=== PATIENT | female | born 1990 | race Caucasian/White ===

== ENCOUNTER → 2017-06-15 13:04 | Outpatient (CLI) | payer OTHER, SELFPAY ==
[2017-06-15 18:56] LABS: Chlamydia Trachomatis by PCR Negative (Negative); Neisserai gonorrhoeae by PCR Negative (Negative); Probe Check PASS; Sample Adequacy Control PASS; Specimen Processing Control PASS
[2017-06-18 11:44] LABS: HPV Reflexed? NOT INDICATED
== END ==
PROVIDERS: Visit Provider Obstetrics & Gynecology
DX: Z12.4 Encounter for screening for malignant neoplasm of cervix (principal); Z11.3 Encounter for screening for infections with a predominantly sexual mode of transmission
CPT/HCPCS: 87491; 87591; 88175; G0145

== ENCOUNTER → 2017-07-06 10:35 | Outpatient (CLI) | payer OTHER, SELFPAY ==
[2017-07-06 12:28] LABS: Color, Urine Yellow (Yellow); Glucose, Dipstick Normal (Normal); Ketone-Dipstick Negative (Negative); Leukocyte Esterase-Dipstick 500 /ul (Negative); Nitrite-Dipstick Negative (Negative); Occult Blood-Urine Negative /ul (Negative); Protein-Dipstick Negative (Negative); Urine Bilirubin Dipstick Negative (Negative); Urine Clarity Clear (Clear); Urine Urobilinogen Normal (Normal)
[2017-07-06 12:38] LABS: Absolute Lymphocyte Count 1.25 X10^3/ul (0.83-4.51); Absolute Neutrophil Count 3.9 X10^3/uL (2.0-7.7); Basophil# 0.01 X10^3/uL; Basophil% 0.2 % (0-1); Eosinophil# 0.12 X10^3/uL; Eosinophils% 2.2 % (0-5); Hematocrit 36.4 % (37-47); Hemoglobin 12.1 g/dl (12.0-15.0); Lymphocyte # 1.25 X10^3/ul (4.0); Lymphocyte % 22.4 % (19-41); Mean Corp Hgb Conc 33.2 g/gl (32-36); Mean Corpuscular Hgb 29.5 pg (27.0-32.0); Mean Corpuscular Volume 88.8 fL (81-99); Mean Platelet Vol. 11.1 fl (6.2-12.0); Monocyte# 0.34 X10^3/uL; Monocyte% 6.1 % (0-10); Neutrophil # 3.85 X10^3/uL (2.7-7.7); Neutrophil % 68.9 % (47-70); Platelet Count 184 K/mm3 (150-450); RBC Distribution Width CV 13.9 % (11.6-14.6); RBC Distribution Width SD 45.2 fl (35.1-43.9); White Blood Count 5.6 K/mm3 (4.4-11.0)
[2017-07-06 12:40] LABS: POSITIVE COUNT NO; POSITIVE DIFFERENTIAL NO; POSITIVE MORPHOLOGY NO
[2017-07-06 12:56] LABS: Amphetamine Urine VISTA NEGATIVE (<1000 ng/mL); Barbiturate Urine VISTA NEGATIVE (< 200 ng/mL); Benzodiazepine Urine VISTA NEGATIVE (< 200 ng/mL); Cocaine Urine VISTA NEGATIVE (< 300 ng/mL); Ecstacy Urine VISTA NEGATIVE (< 500 ng/mL); Methadone Urine VISTA NEGATIVE (< 300 ng/mL); PCP Urine VISTA NEGATIVE (< 25 ng/mL); THC Urine VISTA NEGATIVE (< 50 ng/mL); Vista UDS pH Range 7
[2017-07-06 13:00] LABS: Thyroid Stim Hormone (TSH) 1.62 uIU/mL (0.358-3.74)
[2017-07-07 09:35] LABS: HIV - WCH Non-Reactive (Nonreactive); Rubella IgG 108.1 IU/mL
[2017-07-07 11:29] LABS: HEPATITIS B SURFACE AG Negative (Negative); Hep C Antibodies <0.1 s/co ratio (0.0-0.9)
[2017-07-09 01:12] LABS: Prenatal RPR NONREACTIVE (NONREACTIVE)
== END ==
LOC: WOBLAB 10:38
PROVIDERS: Visit Provider Obstetrics & Gynecology
DX: Z34.90 Encounter for supervision of normal pregnancy, unspecified, unspecified trimester (principal)
CPT/HCPCS: 36415; 80307; 81002; 84443; 85025; 86703; 86762; 86803; 87340

== ENCOUNTER → 2017-10-21 10:48 | Outpatient (CLI) | payer OTHER, SELFPAY ==
[2017-10-21 14:02] LABS: Hematocrit 37.8 % (37-47); Hemoglobin 12.4 g/dl (12.0-15.0); Mean Corp Hgb Conc 32.8 g/gl (32-36); Mean Corpuscular Hgb 30.2 pg (27.0-32.0); Mean Platelet Vol. 11.2 fl (6.2-12.0); Platelet Count 176 K/mm3 (150-450); RBC Distribution Width CV 13.3 % (11.6-14.6); RBC Distribution Width SD 43.9 fl (35.1-43.9); Red Blood Count 4.11 M/mm3 (4.2-5.4); White Blood Count 8.8 K/mm3 (4.4-11.0)
[2017-10-21 14:03] LABS: Scan Indicated on CBC? Y/N NO
[2017-10-21 14:08] LABS: Glucose Challenge Gest 1H 50g 101 mg/dL (70-140)
== END ==
PROVIDERS: Visit Provider Obstetrics & Gynecology
DX: Z34.83 Encounter for supervision of other normal pregnancy, third trimester (principal)
CPT/HCPCS: 36415; 82950; 85027

== ENCOUNTER 2017-11-16 21:10 | Outpatient (CLI) | payer OTHER, SELFPAY ==
[2017-11-16 21:48] VITALS: BMI 22.8
[2017-11-16 21:49] LABS: Bacteria 0 SEEN /hpf (None Seen); Mucous, Urine 0 SEEN /hpf (<or=2+); Red Blood Cells-Urine 0 SEEN /hpf (0-5)
[2017-11-16 21:55] LABS: Color, Urine Yellow (Yellow); Glucose, Dipstick Normal (Normal); Ketone-Dipstick Negative (Negative); Leukocyte Esterase-Dipstick 100 /ul (Negative); Nitrite-Dipstick Negative (Negative); Occult Blood-Urine Negative /ul (Negative); Protein-Dipstick Negative (Negative); Urine Bilirubin Dipstick Negative (Negative); Urine Clarity Clear (Clear); Urine Urobilinogen Normal (Normal)
[2017-11-16 22:01] LABS: Squamous Epithelial Cells - UA 0-5 SEEN /hpf (5-10); White Blood Cells 0-5 SEEN /hpf (0-5)
[2017-11-16 22:52] LABS: ROM Internal Control Test YES-OK TO RESULT pt. (Internal QC); ROM Patient Test Negative (Negative)
[2017-11-16 23:45] LABS: Fetal Fibronectin Negative
--- NOTE | 2017-11-17 04:56 | OB.TRI.NOTE ---
History of Present Illness Date of Service: 11/16/17 Reason For Visit: R/O LABOR Date of Service: 11/16/17 Final NOAH: 01/11/18 Gestational age: 32 Weeks and 0 Days History of Present Illness: 27 yo at 32 wk with prior 39 wk delivery Presents with CC of back pain, ? UCs. Pelvic pain. All started at work. Pain was 7/10 ? SROM yesterday. Allergies No Known Allergies Allergy (Verified 11/16/17 21:42) Physical Exam Cervix Dilation (cm): 0 Station: -3 Effacement (%): 0 - ROM NEG. FFN NEG NST - FHR Rate Baby A Baseline: 120s with accels to 150-160 Variability:: Moderate Accelerations:: 15 x 15 Decelerations:: None NST Reactive:: Yes, Appropriate for gestational age FHR Category:: Category I Uterine Activity:: UCs irreg q 6-10 + with irritability noted. Impression/Plan 32 wk. False labor NST reactive Home to rest. No further heavy lifting Ofc appt as scheduled.
== END 2017-11-16 23:55 | disposition home or self-care (01) ==
LOC: WPOUT 21:22 → WP 21:22
PROVIDERS: Visit Provider Obstetrics & Gynecology
DX: O47.03 False labor before 37 completed weeks of gestation, third trimester (principal); Z3A.32 32 weeks gestation of pregnancy
CPT/HCPCS: 59025; 59050; 81001; 82731; 84112; 99218; G0378

== ENCOUNTER → 2017-12-15 11:53 | Outpatient (CLI) | payer OTHER, SELFPAY ==
[2017-12-15 15:15] LABS: Group B Strep DNA By PCR Negative (Negative); Internal Control PASS; Probe Check PASS; Specimen Processing Control PASS
== END ==
LOC: LABSPEC 11:54
PROVIDERS: Visit Provider Obstetrics & Gynecology
DX: Z36.85 Encounter for antenatal screening for Streptococcus B (principal)
CPT/HCPCS: 87081; 87653

== ENCOUNTER 2018-01-07 16:25 | Outpatient (CLI) | payer OTHER, SELFPAY ==
[2018-01-07 16:50] VITALS: BMI 23.7
--- NOTE | 2018-01-10 11:21 | OB.TRI.NOTE ---
History of Present Illness Date of Service: 01/07/18 Was patient seen by the physician?: No Reason For Visit: R/O LABOR Date of Service: 01/07/18 Final NOAH: 01/11/18 Final NOAH Source: US <20 weeks Gestational age: 39 Weeks and 3 Days History of Present Illness: 39+ week intrauterine presents with contractions. care uneventful. Allergies No Known Allergies Allergy (Verified 11/16/17 21:42) NST - FHR Rate Baby A NST Reactive:: Yes FHR Category:: Category I Uterine Activity:: Occasional contraction noted. Impression/Plan 39+ week intrauterine with false labor. Observe first several hours and no change in cervix. Reactive nonstress test. Will release to home and return when contractions are stronger and more frequent.
== END 2018-01-07 18:30 | disposition home or self-care (01) ==
LOC: WPOUT 16:38 → WP 16:38
PROVIDERS: Referring Provider Obstetrics & Gynecology; Visit Provider Obstetrics & Gynecology
DX: O47.1 False labor at or after 37 completed weeks of gestation (principal); Z3A.39 39 weeks gestation of pregnancy
CPT/HCPCS: 59025; 59050; 99218; G0378

== ENCOUNTER 2018-01-10 02:25 | Inpatient (IN) | payer OTHER, SELFPAY ==
[2018-01-10 01:33] VITALS: BMI 23.7
[2018-01-10] MEDS: Lactated Ringers 1,000 ML 50 ML IV ×3 (02:50→06:55)
[2018-01-10 02:55] VITALS: PULSE 64; RESP 18
[2018-01-10] MEDS: Albuterol 2.5 MG/3 ML VIAL.NEB. INHALATION (02:55)
[2018-01-10 02:58] LABS: Hematocrit 38.9 % (37-47); Hemoglobin 13.2 g/dl (12.0-15.0); Mean Corp Hgb Conc 33.9 g/gl (32-36); Mean Corpuscular Hgb 29.6 pg (27.0-32.0); Mean Corpuscular Volume 87.2 fL (81-99); Mean Platelet Vol. 11.8 fl (6.2-12.0); Platelet Count 168 K/mm3 (150-450); RBC Distribution Width CV 13.3 % (11.6-14.6); RBC Distribution Width SD 40.8 fl (35.1-43.9); Red Blood Count 4.46 M/mm3 (4.2-5.4); Scan Indicated on CBC? Y/N NO; White Blood Count 9.9 K/mm3 (4.4-11.0)
[2018-01-10] MEDS: fentaNYL-bupivacaine (epidural) 100 ML BAG EPIDURAL ×2 (04:03→08:15)
[2018-01-10] MEDS: Ondansetron 4 MG/2 ML Vial IV (04:50)
[2018-01-10] MEDS: Oxytocin 30 units/NS 500 ml 30 UNITS/500 ML IV.SOLN IV (09:34)
[2018-01-10] MEDS: Oxytocin 30 units/NS 500 ml 30 UNITS/500 ML IV.SOLN 334 UNITS IV (10:18)
--- NOTE | 2018-01-10 10:21 | PCM.OB.VAG ---
Vaginal Delivery Maternal Presentation: Active Labor Amniotic Membrane Rupture Type: Artificial Amniotic Fluid Description: Clear Final NOAH: 01/12/18 Final NOAH Source: US <20 weeks Gestational age: 39 Weeks and 5 Days Date of Procedure: 01/10/18 Pre-Operative Diagnosis: 39 5/7 wk labor Post-Operative Diagnosis: same Surgery/ Procedure Performed: Spontaneous Vaginal Delivery Type of Anesthesia: Epidural Description of Procedure: of a jimenez viable female over intact perineum. Head delivered SAUMYA. No nuchal cord. Shoulders delivered easily, L hand at chin. Infant to maternal abdomen. Delayed cord clamp then clamped x two and cut. Female Ap 8/9 PP exam. Bilateral anterior labial/periurethral 1st deg laceration noted. hemostatic, no repair Placenta delivered by spont expulsion, expression 3V cord, normal appearing, intact with trailing membranes. EBL 250 cc pt and infant tolerated delivery well. to recovery, stable condition. Ray Rashad counts correct x two. Presentation: Vertex, SAUMYA Placental Delivery Description: Spontaneous, Expressed Placenta Disposition: [facility] Cord Vessel Description: 3 Vessels Cord Entanglement: None Drain: Dubois to straight drain Estimated Blood Loss: 250 A gender: Female (1 minute): 8 (5 minute): 9 Episiotomy Description: None Laceration: Periurethral Extnsion/lac, 1st degree - no repair Medications given after delivery: IV Pitocin Complications: None
--- NOTE | 2018-01-10 10:29 | PCM.DCVAG ---
Discharge Diet: No Restrictions Discharge Activity: May Shower, May Take a Tub Bath Return to work on:: 02/21/18 May resume sexual activity in: 4-6 weeks Additional Activity Instructions:: Nothing in the vagina for 4-6 weeks. You may return to work/school in 6 weeks. Additional Instructions: If you experience any of the following, contact your healthcare provider. Bleeding that soaks a pad every hour for 2 hours Fever 100.4 or higher Unrelieved abdominal pain Problems urinating (including inability to urinate or burning while urinating). Visual changes Severe headache Flu-like symptoms Pain or redness in one of both of your breasts Pain, warmth, tenderness or swelling in your legs, especially the calf area Frequent nausea and vomiting Symptoms of depression or anxiety If you experience any of the following, call 911 or go to the nearest Emergency Room. Chest pain Problems breathing Seizure activity Partial or complete paralysis of a body part, slurred speech, weakness or drooping of the face, or a sudden inability to walk or hold your balance Allergies/Adverse Reactions: Allergies No Known Allergies Allergy (Verified 11/16/17 21:42) Medications to take at Discharge Doxylamine Succinate [Unisom] 25 mg PO QHS PRN PRN 11/16/17 Vits [Prenatabs FA ] 1 tab PO DAILY MDD one 11/16/17 Sertraline HCl [Zoloft] 50 mg PO QHS 11/16/17 Please Follow Up With: Lora Jordan MD - [phone] When: Call to make an appointment with your doctor in 6 weeks. Test Results: Test results from this visit will be discussed in further detail at your follow-up appointment, if applicable. Proposed Discharge Date: 01/12/18
--- NOTE | 2018-01-10 10:30 | DCINST_ITS ---
Discharge Diet: No Restrictions Discharge Activity: May Shower, May Take a Tub Bath Return to work on:: 02/21/18 May resume sexual activity in: 4-6 weeks Additional Activity Instructions:: Nothing in the vagina for 4-6 weeks. You may return to work/school in 6 weeks. Additional Instructions: If you experience any of the following, contact your healthcare provider. * Bleeding that soaks a pad every hour for 2 hours * Fever 100.4 or higher * Unrelieved abdominal pain * Problems urinating (including inability to urinate or burning while urinating). * Visual changes * Severe headache * Flu-like symptoms * Pain or redness in one of both of your breasts * Pain, warmth, tenderness or swelling in your legs, especially the calf area * Frequent nausea and vomiting * Symptoms of depression or anxiety If you experience any of the following, call 911 or go to the nearest Emergency Room. * Chest pain * Problems breathing * Seizure activity * Partial or complete paralysis of a body part, slurred speech, weakness or drooping of the face, or a sudden inability to walk or hold your balance Allergies/Adverse Reactions: Allergies No Known Allergies Allergy (Verified 11/16/17 21:42) Medications to take at Discharge Doxylamine Succinate [Unisom] 25 mg PO QHS PRN PRN 11/16/17 Vits [Prenatabs FA ] 1 tab PO DAILY MDD one 11/16/17 Sertraline HCl [Zoloft] 50 mg PO QHS 11/16/17 Please Follow Up With: Lora Jordan MD - [phone] When: Call to make an appointment with your doctor in 6 weeks. Test Results: Test results from this visit will be discussed in further detail at your follow- up appointment, if applicable. Proposed Discharge Date: 01/12/18
[2018-01-10] MEDS: Oxytocin 30 units/NS 500 ml 30 UNITS/500 ML IV.SOLN 167 UNITS IV (10:48)
[2018-01-10] MEDS: Ibuprofen 600 MG Tablet PO ×2 (12:46→19:55)
--- NOTE | 2018-01-10 13:38 | NURSING ---
Bedside shift report given to Matt Moffett RN. She will assume care of patient at this time.
[2018-01-10 17:00] VITALS: BP 119/76; PULSE 90; RESP 18; TEMP 36.4
[2018-01-10] MEDS: Acetaminophen 500 MG Tablet 1000 MG PO (17:08)
[2018-01-10 19:50] VITALS: BP 110/70; PULSE 53; RESP 18; TEMP 36.3
[2018-01-10] MEDS: Sertraline 50 MG Tablet PO (21:27)
[2018-01-11] VITALS: BP 110/62; PULSE 66; RESP 18; TEMP 36.3
[2018-01-11 04:15] VITALS: BP 95/56; PULSE 67; RESP 18; TEMP 36.2
--- NOTE | 2018-01-11 07:22 | PCM.PN.OB ---
Subjective: PPD#1 Doing well. Would like to go home today. Some stinging with urination, minor lacerations and using Dermoplast prn for this. Mother in room and supportive. No concerns voiced. - Physical Exam General: Alert, Oriented x3, Cooperative, No apparent distress HEENT: Atraumatic Neck: Supple Abdomen: Soft - Fundus firm NT at approx 2-3 cm inferior to umbilicus Neurological: Cranial nerves II-XII grossly intact Psych/Mental Status: Normal Affect Vital Signs Temp Pulse Resp BP 97.1 F L 67 18 95/56 L 01/11/18 04:15 01/11/18 04:15 01/11/18 04:15 01/11/18 04:15 Weight: 75 kg Body Mass Index (BMI) 23.7 Intake and Output for Last 24 Hours 01/09/18 01/10/18 01/11/18 23:59 23:59 23:59 Intake Total 2679 / 2679 Output Total 700 / 700 Balance 1978 / 1978 Medical Necessity - Tobacco Use Smoking Status: Current every day smoker Assessment/Plan PPD#1 Stable pp. Dischg home today per pt request. RTO in 6 wk for PP check, prn sooner.
[2018-01-11 09:10] VITALS: BP 120/71; PULSE 78; RESP 16; TEMP 36.5; O2SAT 96
[2018-01-11] MEDS: Ibuprofen 600 MG Tablet PO (09:20)
[2018-01-11] MEDS: Prenatal Vits Tablet 1 TABLET PO (09:21)
--- NOTE | 2018-01-11 11:06 | CASEMGMT ---
Social Work: Social Work referral for history of anxiety/depression. Met with MOB in room. Introduced self and the role of the social workers. Mom: Gracie Soares G/P: 04/01 PNC: Yes, Dr. Jordan Control: Will discuss with RN. FOB: Per MOB unknown and paternity testing will be done. Baby: : [birth year] 10, 2017 at 1018 Apgars: 8/9 Weight: 7 lbs Casino Banker: Petty Modi, appointment scheduled for tomorrow. Feeding: breast, per MOB going well MOB's other Children: Carole 5 years old Housing: MOB lives with 5 year old daughter in a house in [place]. Transportation: MOB drives and owns a vehicle Supplies: Per MOB, all supplies are already obtained including car seat which is in the room currently. Support/rn child: MOB's parents are very supportive to MOB and first child. Per MOB she also has 2 best friend that are very supportive, per MOB. MOB indicates that a regional driver is already in place for first child and will continue with babysit Employment/financial: MOB works at the [employer] and indicates that there is no current concerns about finances. MOB and baby both have insurance coverage ([employer]) through MOB's employer. Agency involvement: MOB had WIC after first baby and is planning on applying for WIC again. Maternal Mental Health History: MOB denies post depression after first child but does admit to having depression a few years ago. MOB states that she was on Celexa but the medication was changed to Zoloft during . MOB states the Zoloft has been effective and mood has been stable. MOB denies any counseling or case management services for depression. MOB drug screen results: negative, MOB denies any history of drug or alcohol abuse but does admit to daily tobacco use. MOB able to verbalize openly with this STUDENT SERVICES VICE PRESIDENT and appears to bonding well with baby. MOB denies any acute emotional distress and appears to have a bright affect as evidenced by smiling and voicing nba over of baby. MOB given resources on post depression as well as general information on depression and local providers. MOB states that her mother will be staying with MOB, baby and first child for at least tonight. Support provided and MOB denies any other needs or questions. CROW Garcia
[2018-01-11 13:30] VITALS: BP 112/65; PULSE 58; RESP 18; TEMP 37; O2SAT 98
== END 2018-01-11 13:30 | disposition home or self-care (01) | DRG 807 ==
LOC: WPOUT 02:32 → WP 10:25
PROVIDERS: Obstetrics & Gynecology; Admitting Provider Obstetrics & Gynecology; Referring Provider Obstetrics & Gynecology; Visit Provider Obstetrics & Gynecology
DX: O99.52 Diseases of the respiratory system complicating childbirth (principal); J45.909 Unspecified asthma, uncomplicated; O99.334 Smoking (tobacco) complicating childbirth; O99.344 Other mental disorders complicating childbirth; F32.9 Major depressive disorder, single episode, unspecified; F41.9 Anxiety disorder, unspecified; Z79.899 Other long term (current) drug therapy; Z3A.39 39 weeks gestation of pregnancy; Z37.0 Single live birth
CPT/HCPCS: 59025; 59050; 85027; 86850; 86900; 94640; 99218; J7120; G0378; J2405

== ENCOUNTER → 2018-11-04 12:51 | Outpatient (CLI) | payer OTHER, SELFPAY ==
[2018-11-04 14:12] LABS: Absolute Lymphocyte Count 1.84 X10^3/uL (0.83-4.51); Absolute Neutrophil Count 4.1 X10^3/uL (2.0-7.7); Basophil# 0.03 X10^3/uL; Basophil% 0.5 % (0-1); Eosinophil# 0.13 X10^3/uL; Eosinophils% 2.1 % (0-5); Hematocrit 42.1 % (37-47); Hemoglobin 13.6 g/dL (12.0-15.0); Lymphocyte # 1.84 X10^3/ul (4.0); Lymphocyte % 29.1 % (19-41); Mean Corp Hgb Conc 32.3 g/dL (32-36); Mean Corpuscular Hgb 28.8 pg (27.0-32.0); Mean Corpuscular Volume 89.2 fL (81-99); Mean Platelet Vol. 12.2 fl (6.2-12.0); Monocyte# 0.26 X10^3/uL; Monocyte% 4.1 % (0-10); NRBC Flagged by Analyzer 0 % (0-5); Neutrophil # 4.05 X10^3/uL (2.7-7.7); Platelet Count 216 K/mm3 (150-450); RBC Distribution Width CV 12.9 % (11.6-14.6); RBC Distribution Width SD 42.4 fl (35.1-43.9); Red Blood Count 4.72 M/mm3 (4.2-5.4); White Blood Count 6.3 K/mm3 (4.4-11.0)
[2018-11-04 14:29] LABS: Vitamin B12 488 pg/mL (211-911)
[2018-11-04 14:35] LABS: ALB/GLOB Ratio 1.1 RATIO (0.9-2.4); AST(SGOT) 11 U/L (15-37); Alanine Aminotransfer ALT/SGPT 13 U/L (13-56); Albumin, Serum 3.7 g/dL (3.2-5.0); Alkaline Phosphatase 44 U/L (45-117); Anion Gap 7 (5-15); BUN 7 mg/dL (7-18); BUN/Creat Ratio 9.1 RATIO (10-20); Calcium,Total 8.5 mg/dL (8.5-10.1); Chloride 109 mmol/L (98-107); Creatinine, Serum 0.77 mg/dL (0.55-1.02); EST Glomerular Filtration Rate 95 mL/min (>60); Est Glom Filt Rate - Afr Amer 115 mL/min (>60); Ferritin 19 ng/mL (8-252); Globulin 3.3 g/dL (2.2-4.2); Glucose 86 mg/dL (74-106); Potassium 3.9 mmol/L (3.5-5.1); Sodium Level 140 mmol/L (136-145); Thyroid Stim Hormone (TSH) 0.74 uIU/mL (0.358-3.74)
== END ==
LOC: MTLAB 12:53
PROVIDERS: Family Provider Family Medicine; PCP Family Medicine; Referring Provider Family Medicine; Visit Provider Family Medicine
DX: R53.83 Other fatigue (principal); F32.9 Major depressive disorder, single episode, unspecified
CPT/HCPCS: 36415; 80053; 82607; 82728; 84443; 85025

== ENCOUNTER 2020-01-17 12:16 | Emergency (ER) | payer OTHER, SELFPAY ==
[2020-01-17 12:17] VITALS: BP 138/96; PULSE 88; RESP 16; TEMP 36.1; O2SAT 98; BMI 21.1
--- NOTE | 2020-01-17 12:30 | US_ITS ---
STUDY: ULTRASOUND OF THE FEMALE PELVIS - COMPLETE REASON FOR EXAM: Female, 29 years old. POSITIVE PREG TEST AT HOME LAST WEEK -- HCG and lt;1 TODAY -- VAGINAL BLEEDING -- LMP 12/28/19 -- RLQ DISCOMFORT LMP: 12/28/2019. TECHNIQUE: Transvaginal TECHNICAL QUALITY: Adequate. COMPARISON: None. FINDINGS: The uterus is anteverted and is in a midline position. The uterus measures 9.4 cm x 5.9 cm x 4.7 cm. Normal uterine cervix. The endometrium measures 8.0 mm in thickness, and is hyperechoic. There is no demonstrated endometrial mass. There is no demonstrated myometrial mass. I.U.D. - The patient does not have an I.U.D. The right ovary is visualized. The right ovary is enlarged and measures 7.5 cm x 6.3 cm x 5.1 cm. 3 cystic nodules are seen adjacent to each other. The largest measures 5.3 centimeters by 3.9 cm x 2.2 cm. Blood flow is seen along the periphery of the complex solid/cystic nodules. There is normal arterial and normal venous vascularity. The left ovary is visualized. The left ovary measures 2.7 cm x 3.2 cm x 1.5 cm. There is no left ovarian cyst or ovarian mass. There is no visualized left adnexal mass or complex lesion. There is normal arterial and normal venous vascularity. There is minimal fluid in the cul-de-sac. The pre void volume of the bladder was 280 ml. Polycystic ovary disease: US/Transvaginal Non- IMPRESSION: 3 complex solid/cystic nodules in the right adnexa. A neoplastic process should be ruled out. Electronically Signed: Niko Palma, at 14:55 EST , Service support ,
--- NOTE | 2020-01-17 12:31 | ED.VIS.GEN ---
History of Present Illness Chief Complaint: Vag Bld, Preg Informant: Patient Narrative: Patient's maiden name is Rodger. She recently got . Her insurance is still under her maiden name. 29-year-old female presents to the emergency department for the evaluation of vaginal bleeding. Patient is G2, P2. Patient is B+ per the chart. she tells me that last week she had 3 consecutive days of a positive test. She developed vaginal bleeding yesterday and pain today in the right lower quadrant. She is a former patient of Dr. Jordan. She would like to see Dr. Mendoza. She is supposed to start her. Later this month. She had a regular period last month. Past Medical History - Allergies and Home Meds Allergies/Adverse Reactions: Allergies No Known Allergies Allergy (Verified 01/17/20 12:17) Primary Care Physician: Guerrero Quijano MD [Primary Care Provider] - Surgical History: noncontributory Smoking Status: Never smoker Drugs: None Review of Systems General: Denies: Chills, Fever, Sweats Eyes: Denies: Visual changes - bilaterally, Diplopia ENT: Denies: Rhinorrhea, Sore throat Cardiovascular: Denies: Chest pain, Palpitations Respiratory: Denies: Dyspnea, Cough, Dyspnea on exertion Gastrointestinal: Denies: Abdominal pain, Nausea, Vomiting, Diarrhea, Melena, Hematochezia Genitourinary: Reports: - - Right pelvic pain, - - Vaginal bleeding. Denies: Dysuria, Hematuria, Frequency Musculoskeletal: Denies: Back pain, Extremity Pain Skin: Denies: Rash, Wounds Neurological: Denies: Headache, Weakness, Numbness Physical Exam Vital Signs/Narrative: Vital Signs Temp Pulse Resp BP Pulse Ox 01/17/20 12:17 97.0 F L 88 16 138/96 H 98 General: Well nourished, Well developed, No Acute Distress Head: Normocephalic, Atraumatic Eyes: Perrl, EOMI ENT: Moist mucous membranes, No rhinorrhea Neck: Supple, Nontender Cardiovascular: Regular rate, Regular rhythm, No murmurs Respiratory: No distress, CTA bilaterally, Chest nontender Abdomen: Soft, Nondistended, Normal bowel sounds, Tender - Right lower quadrant. Negative for: Guarding, Rebound tenderness Back: Nontender, Normal Inspection Extremities: Nontender, No edema Skin: Normal color, No rash Neurological: Alert, Oriented x3, Cranial nerves II-XII grossly intact, Normal Strength, Normal Sensation Psychological: Normal affect, Normal Mood Diagnostic/Tx/Re-eval Clinical Impression(s) from Imaging Studies Transvaginal US 01/17/20 12:30 IMPRESSION: 3 complex solid/cystic nodules in the right adnexa. A neoplastic process should be ruled out. Electronically Signed: Niko Palma, at 14:55 EST , Service support , Laboratory Last Values WBC 8.5 K/mm3 (4.4-11.0) 01/17/20 12:35 RBC 5.02 M/mm3 (4.2-5.4) 01/17/20 12:35 Hgb 15.0 g/dL (12.0-15.0) 01/17/20 12:35 Hct 45.8 % (37-47) 01/17/20 12:35 MCV 91.2 fL (81-99) 01/17/20 12:35 MCH 29.9 pg (27.0-32.0) 01/17/20 12:35 MCHC 32.8 g/dL (32-36) 01/17/20 12:35 RDW Std Deviation 43.0 fl (35.1-43.9) 01/17/20 12:35 RDW Coeff of Mary Kate 12.9 % (11.6-14.6) 01/17/20 12:35 Plt Count 199 K/mm3 (150-450) 01/17/20 12:35 MPV 11.3 fl (6.2-12.0) 01/17/20 12:35 Immature Gran % (Auto) 0.200 % (0.0-0.9) 01/17/20 12:35 Neut % (Auto) 58.5 % (47-70) 01/17/20 12:35 Lymph % (Auto) 32.2 % (19-41) 01/17/20 12:35 [place] % (Auto) 5.6 % (0-10) 01/17/20 12:35 Eos % (Auto) 2.9 % (0-5) 01/17/20 12:35 Baso % (Auto) 0.6 % (0-1) 01/17/20 12:35 Absolute Neuts (auto) 5.0 X10^3/uL (2.0-7.7) 01/17/20 12:35 Absolute Lymphs (auto) 2.75 X10^3/uL (0.83-4.51) 01/17/20 12:35 Nucleated RBC % 0 % (0-5) 01/17/20 12:35 Sodium 138 mmol/L (136-145) 01/17/20 12:35 Potassium 3.6 mmol/L (3.5-5.1) 01/17/20 12:35 Chloride 105 mmol/L (98-107) 01/17/20 12:35 Carbon Dioxide 27.0 mmol/L (21.0-32.0) 01/17/20 12:35 Anion Gap 6 (5-15) 01/17/20 12:35 BUN 6 mg/dL (7-18) L 01/17/20 12:35 Creatinine 0.70 mg/dL (0.55-1.02) 01/17/20 12:35 Estim Creat Clear Calc 125.95 ml/min 01/17/20 12:35 Est GFR (MDRD) Af Amer 127 mL/min (>60) 01/17/20 12:35 Est GFR (MDRD) Non-Af 105 mL/min (>60) 01/17/20 12:35 BUN/Creatinine Ratio 8.5 RATIO (10-20) L 01/17/20 12:35 Glucose 85 mg/dL (74-106) 01/17/20 12:35 Calcium 9.4 mg/dL (8.5-10.1) 01/17/20 12:35 HCG, Quant < 1 mIU/mL (1-3) 01/17/20 12:35 Blood Type B POSITIVE 01/17/20 12:35 - Medical Decision Making hCG level is less than 1. Hemoglobin is normal. She is hemodynamically stable. Pelvic ultrasound is worrisome for neoplasm. I spoke with Dr. Stephanie Gregory. She is covering Dr. Jordan's former group. We are going to add a CA-125 onto her evaluation. She will follow-up in the office within the week. ED Disposition - Plan for ED Patient: Disposition: Home or Assisted Living Diagnosis: Abnormal vaginal bleeding, Ovarian mass, right, Pelvic pain Instructions: ED Bleed Irregular Vaginal Referrals: Stephanie Iyer MD [STAFF PHYSICIAN] - As soon as possible
[2020-01-17 12:46] LABS: Absolute Lymphocyte Count 2.75 X10^3/uL (0.83-4.51); Basophil# 0.05 X10^3/uL; Basophil% 0.6 % (0-1); Eosinophil# 0.25 X10^3/uL; Eosinophils% 2.9 % (0-5); Hematocrit 45.8 % (37-47); Lymphocyte # 2.75 X10^3/ul (4.0); Lymphocyte % 32.2 % (19-41); Mean Corp Hgb Conc 32.8 g/dL (32-36); Mean Corpuscular Hgb 29.9 pg (27.0-32.0); Mean Corpuscular Volume 91.2 fL (81-99); Mean Platelet Vol. 11.3 fl (6.2-12.0); Monocyte# 0.48 X10^3/uL; Monocyte% 5.6 % (0-10); NRBC Flagged by Analyzer 0 % (0-5); Neutrophil # 4.98 X10^3/uL (2.7-7.7); Neutrophil % 58.5 % (47-70); Platelet Count 199 K/mm3 (150-450); RBC Distribution Width CV 12.9 % (11.6-14.6); Red Blood Count 5.02 M/mm3 (4.2-5.4); White Blood Count 8.5 K/mm3 (4.4-11.0)
[2020-01-17 13:00] LABS: Anion Gap 6 (5-15); BUN 6 mg/dL (7-18); BUN/Creat Ratio 8.5 RATIO (10-20); Calcium,Total 9.4 mg/dL (8.5-10.1); Chloride 105 mmol/L (98-107); EST Glomerular Filtration Rate 105 mL/min (>60); Est Glom Filt Rate - Afr Amer 127 mL/min (>60); Estimated Creatinine Clearance 125.95 ml/min; Glucose 85 mg/dL (74-106); Potassium 3.6 mmol/L (3.5-5.1); Sodium Level 138 mmol/L (136-145)
[2020-01-17 13:24] LABS: hCG Titer Quant., Serum < 1 mIU/mL (1-3)
[2020-01-17 14:21] VITALS: BP 116/78; PULSE 62; O2SAT 100
[2020-01-17 15:58] VITALS: BP 139/97; PULSE 62; RESP 15; O2SAT 97
[2020-01-19 16:41] LABS: Cancer Antigen 125 19.3 U/mL (0.0-38.1)
== END 2020-01-17 15:59 | disposition home or self-care (01) ==
PROVIDERS: Emergency Provider Emergency Medicine; PCP Family Medicine
DX: N83.9 Noninflammatory disorder of ovary, fallopian tube and broad ligament, unspecified (principal); N93.9 Abnormal uterine and vaginal bleeding, unspecified; R10.2 Pelvic and perineal pain
CPT/HCPCS: 36415; 76830; 80048; 84702; 85025; 86304; 86900; 86901; 93976; 99283; A4216

== ENCOUNTER → 2020-02-29 10:18 | Outpatient (CLI) | payer OTHER, SELFPAY ==
[2020-02-29 12:22] LABS: Absolute Lymphocyte Count 2.16 X10^3/uL (0.83-4.51); Basophil# 0.05 X10^3/uL; Eosinophils% 6.2 % (0-5); Hematocrit 45.4 % (37-47); Hemoglobin 14.9 g/dL (12.0-15.0); Lymphocyte # 2.16 X10^3/ul (4.0); Lymphocyte % 44.6 % (19-41); Mean Corp Hgb Conc 32.8 g/dL (32-36); Mean Corpuscular Volume 88.3 fL (81-99); Mean Platelet Vol. 11.9 fl (6.2-12.0); Monocyte# 0.33 X10^3/uL; Monocyte% 6.8 % (0-10); NRBC Flagged by Analyzer 0 % (0-5); Neutrophil # 1.99 X10^3/uL (2.7-7.7); Neutrophil % 41.2 % (47-70); Platelet Count 213 K/mm3 (150-450); RBC Distribution Width CV 12.6 % (11.6-14.6); RBC Distribution Width SD 41.4 fl (35.1-43.9); Red Blood Count 5.14 M/mm3 (4.2-5.4); White Blood Count 4.8 K/mm3 (4.4-11.0)
[2020-02-29 12:35] LABS: Ferritin 45 ng/mL (8-252); Iron 51 ug/dL (50-170)
[2020-03-01 07:48] LABS: H. Pylori Antibody (IgG) 0.39 (0.00-0.79)
== END ==
PROVIDERS: PCP Family Medicine; Visit Provider Family Medicine
DX: K29.70 Gastritis, unspecified, without bleeding (principal)
CPT/HCPCS: 36415; 82728; 83540; 85025; 86677

== ENCOUNTER → 2020-04-19 11:48 | Outpatient (CLI) | payer OTHER, SELFPAY ==
[2020-04-19 12:19] LABS: Absolute Lymphocyte Count 1.77 X10^3/uL (0.83-4.51); Absolute Neutrophil Count 4.1 X10^3/uL (2.0-7.7); Basophil# 0.03 X10^3/uL; Basophil% 0.5 % (0-1); Eosinophil# 0.17 X10^3/uL; Eosinophils% 2.6 % (0-5); Hematocrit 40.1 % (37-47); Hemoglobin 13.3 g/dL (12.0-15.0); Lymphocyte # 1.77 X10^3/ul (4.0); Lymphocyte % 27.4 % (19-41); Mean Corp Hgb Conc 33.2 g/dL (32-36); Mean Corpuscular Hgb 29.5 pg (27.0-32.0); Mean Corpuscular Volume 88.9 fL (81-99); Mean Platelet Vol. 10.8 fl (6.2-12.0); Monocyte# 0.34 X10^3/uL; Monocyte% 5.3 % (0-10); NRBC Flagged by Analyzer 0 % (0-5); Neutrophil # 4.14 X10^3/uL (2.7-7.7); Neutrophil % 63.9 % (47-70); Platelet Count 218 K/mm3 (150-450); RBC Distribution Width CV 12.7 % (11.6-14.6); RBC Distribution Width SD 41.2 fl (35.1-43.9); Red Blood Count 4.51 M/mm3 (4.2-5.4); White Blood Count 6.5 K/mm3 (4.4-11.0)
[2020-04-19 13:45] LABS: HIV - WCH Non-Reactive (Nonreactive); Hepatitis B Surface Antigen Non-Reactive (Nonreactive); Hepatitis C Antibody Non-Reactive (Nonreactive); Rubella IgG Reactive (Nonreactive); Vitamin B12 619 pg/mL (211-911); Vitamin D,25 Hydroxy 20.2 ng/mL
[2020-04-19 13:47] LABS: ALB/GLOB Ratio 1.4 RATIO (0.9-2.4); AST(SGOT) 9 U/L (15-37); Alanine Aminotransfer ALT/SGPT 12 U/L (13-56); Albumin, Serum 4.2 g/dL (3.2-5.0); Alkaline Phosphatase 52 U/L (45-117); Anion Gap 4 (5-15); BUN 8 mg/dL (7-18); BUN/Creat Ratio 12.3 RATIO (10-20); Calcium,Total 8.8 mg/dL (8.5-10.1); Chloride 107 mmol/L (98-107); Creatinine, Serum 0.65 mg/dL (0.55-1.02); EST Glomerular Filtration Rate 114 mL/min (>60); Est Glom Filt Rate - Afr Amer 138 mL/min (>60); Ferritin 65 ng/mL (8-252); Glucose 82 mg/dL (74-106); Potassium 3.7 mmol/L (3.5-5.1); Protein, Total 7.2 g/dL (6.4-8.2); Sodium Level 138 mmol/L (136-145)
[2020-04-22 09:21] LABS: Syphilis Antibodies Non-reactive
[2020-04-23 03:06] LABS: Chlamydia By Nucleic Acid AMP Negative (Negative)
[2020-04-23 09:26] LABS: Gonococcus By Nucleic Acid AMP Negative (Negative)
[2020-04-24 12:19] LABS: HPV Reflexed? NOT INDICATED
== END ==
LOC: WOBLAB 11:48
PROVIDERS: Visit Provider Student in an Organized Health Care Education/Training Program
DX: Z36.85 Encounter for antenatal screening for Streptococcus B (principal); K92.1 Melena; Z12.4 Encounter for screening for malignant neoplasm of cervix; Z11.3 Encounter for screening for infections with a predominantly sexual mode of transmission
CPT/HCPCS: 36415; 80053; 82306; 82607; 82728; 82746; 85025; 86703; 86762; 86803; 87086; 87088; 87340; 87491; 87591; 88175; G0145

== ENCOUNTER → 2020-06-06 16:09 | Outpatient (CLI) | payer OTHER, SELFPAY ==
[2020-06-06 17:21] LABS: Hemoglobin 12.2 g/dL (12.0-15.0); Mean Corp Hgb Conc 33.9 g/dL (32-36); Mean Corpuscular Hgb 30.6 pg (27.0-32.0); Mean Corpuscular Volume 90.2 fL (81-99); Mean Platelet Vol. 11.4 fl (6.2-12.0); Platelet Count 190 K/mm3 (150-450); RBC Distribution Width CV 13.5 % (11.6-14.6); RBC Distribution Width SD 44.3 fl (35.1-43.9); Red Blood Count 3.99 M/mm3 (4.2-5.4); White Blood Count 9.4 K/mm3 (4.4-11.0)
[2020-06-06 17:27] LABS: Ferritin 44 ng/mL (8-252)
== END ==
PROVIDERS: Visit Provider Student in an Organized Health Care Education/Training Program
DX: Z34.81 Encounter for supervision of other normal pregnancy, first trimester (principal)
CPT/HCPCS: 36415; 82728; 85027

== ENCOUNTER → 2020-08-28 14:19 | Outpatient (CLI) | payer OTHER, SELFPAY ==
[2020-08-28 15:10] LABS: Hematocrit 36.1 % (37-47); Hemoglobin 11.8 g/dL (12.0-15.0); Mean Corp Hgb Conc 32.7 g/dL (32-36); Mean Corpuscular Hgb 29.9 pg (27.0-32.0); Mean Corpuscular Volume 91.4 fL (81-99); Mean Platelet Vol. 11.5 fl (6.2-12.0); Platelet Count 193 K/mm3 (150-450); RBC Distribution Width CV 13.1 % (11.6-14.6); RBC Distribution Width SD 43.5 fl (35.1-43.9); Red Blood Count 3.95 M/mm3 (4.2-5.4); White Blood Count 10.1 K/mm3 (4.4-11.0)
[2020-08-28 15:37] LABS: Glucose Challenge Gest 1H 50g 99 mg/dL (70-140)
== END ==
PROVIDERS: Visit Provider Student in an Organized Health Care Education/Training Program
DX: Z34.82 Encounter for supervision of other normal pregnancy, second trimester (principal)
CPT/HCPCS: 36415; 82950; 85027

== ENCOUNTER → 2020-09-16 11:06 | Outpatient (CLI) | payer OTHER, SELFPAY | PROVIDERS: Visit Provider Obstetrics & Gynecology | DX: N76.0 Acute vaginitis (principal) ==

== ENCOUNTER → 2020-11-19 | Outpatient (CLI) | payer OTHER, SELFPAY | END | disposition home or self-care (01) | LOC: LABSPEC 14:01 | PROVIDERS: Visit Provider Obstetrics & Gynecology | DX: Z36.85 Encounter for antenatal screening for Streptococcus B (principal) | CPT/HCPCS: 87081 ==

== ENCOUNTER 2020-12-05 03:12 | Inpatient (IN) | payer OTHER, SELFPAY ==
[2020-12-05] VITALS (59 sets, daily range): BP systolic 94–133; BP diastolic 53–91; PULSE 46–214; RESP 16; TEMP 36.1–36.7; O2SAT 83–99; BMI 25.1
[2020-12-05] MEDS: Lactated Ringers 1,000 ML 200 ML IV (03:25)
[2020-12-05] MEDS: Lactated Ringers 500 ML 999 ML IV (03:30)
[2020-12-05] MEDS: Ondansetron 4 MG/2 ML Vial IV (03:34)
[2020-12-05 03:40] LABS: Absolute Neutrophil Count 8.2 X10^3/uL (2.0-7.7); Basophil# 0.02 X10^3/uL; Basophil% 0.2 % (0-1); Eosinophil# 0.12 X10^3/uL; Eosinophils% 1.1 % (0-5); Hematocrit 39.4 % (37-47); Hemoglobin 13.4 g/dL (12.0-15.0); Lymphocyte % 16.9 % (19-41); Mean Corpuscular Hgb 29.8 pg (27.0-32.0); Mean Corpuscular Volume 87.8 fL (81-99); Mean Platelet Vol. 12.1 fl (6.2-12.0); Monocyte# 0.49 X10^3/uL; Monocyte% 4.6 % (0-10); NRBC Flagged by Analyzer 0 % (0-5); Neutrophil # 8.16 X10^3/uL (2.7-7.7); Neutrophil % 76.5 % (47-70); Platelet Count 165 K/mm3 (150-450); RBC Distribution Width CV 13.1 % (11.6-14.6); Red Blood Count 4.49 M/mm3 (4.2-5.4); White Blood Count 10.7 K/mm3 (4.4-11.0)
[2020-12-05] MEDS: fentaNYL-bupivacaine (epidural) 100 ML BAG EPIDURAL (04:22)
--- NOTE | 2020-12-05 08:09 | HP.PCM_ITS ---
History and Physical Date of Admission: 12/05/20 ACOG ANTEPARTUM RECORD - HISTORY AND PHYSICAL (12/05/2020) Name: GRACIE AVILA History of this : This is a 30 year old [id number] presents at 38 wks + 5 days gestation in active labor. OB Physician: Millie Pineda 's Physician: SANDRA ...................................................................... : 1990 Age: 30 Address: [address] [place] [address] [address] [place] [address] Phone: (h) [phone] (o) [phone] Insurance Carrier: [facility] [id number] Emergency Contact: RADHA ANAYA [phone] ...................................................................... 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 Second stage very short both babies. ALLERGIES: NKDA MEDICATIONS: albuterol sulfate HFA 90 mcg/actuation aerosol inhaler 2 puffs q 6 hr prn Carafate 1 gram tablet one pill four times a day cyproheptadine 4 mg tablet One pill by mouth once a day Lexapro 20 mg tablet one daily Metrogel Vaginal 0.75 % 1 applicator full per vagina at bedtime for 7 days + DHA 28 mg iron- 975 mcg-200 mg combo pack 1 daily Protonix 20 mg tablet,delayed release 1 PO QD terconazole 0.4 % vaginal cream once nightly for 7 days Vistaril 25 mg capsule one tab four times daily as needed for anxiety Vitamin D3 50 mcg (2,000 unit) capsule 1 PO QD Zofran 4 mg tablet One pill by mouth four times a day SOCIAL HISTORY: Smoking - Was smoker 1PPD. Now vapor pen 2x d. Alcohol Use - denies drinking Diet - balanced Diet and Coffee 2 watered down coffees daily. Water-3 L. Lifestyle - Exercise - Active w job. 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 Illicit Drug Use - denies use of street drugs Sexual Activity - Residence - [facility] Place of - [place], [place] Hours Worked - 40 hours per week Spouse-Sig Other Name - Amish Spouse-Sig Other Occupation - concrete Spouse-Sig Other Phone No - [phone] Children Name(s) - Tyrell [place] PRIOR DELIVERY HISTORY DEL DATE GEST LAB WT LB WT OZ TYPE ANES LABOR TX 01 Jan 18 6 0 0 0 Vag None No Jan 16 37 13 7 0 Vag Epidural No Apr 13 39 10 6 12 Vag Epidural No ANTEPARTUM FLOW CHART VISIT GE RTC FU F F NV U U DATE WK MD WKS HT PN HR M SS BP ED WT NV GL D EF ST __ ____ ___ __ __ ___ __ __ __ ___ __ __ __ ___ __ 30 Oct 37 JM 1 37 V + + O 104/56 0 180 - - 1 Oct JMW 1 36 V + + 116/66 0 178 tr ne S 08 Oct JMW 2 34 + + 122/60 0 174 ne ne cl 50 -2 Sep JM 2 32 V on + 112/82 0 169 - - Oct 28 SHM 2 30 - + + 94/60 0 168 tr - Sep 24 SHM 2 27 ? + + 116/70 0 165 - - c l h 30 [place] 24 CM 4 24 + + 122/62 0 163 - - 01 Jul 20 CM 4 20 + + 90/58 0 157 ne ne 03 June 16 CM 4 + + 102/62 0 152 ne ne 08 May 12 CM 4 +U 108/64 0 149 ne ne 11 Apr 8 CM 4 U+ O 124/70 0 147 - 24 Apr 6 JMW 3 U+ US 106/72 0 143 - - ANTEPARTUM NOTE(S): Nov 28 2020: no complaints Nov 19 2020: No problems, GBS Done Nov 06 2020: Pt having inc pressure and a lot of BX nixon contx Oct 21 2020: US today, no concerns Oct 10 2020: tired Sep 16 2020: Nauseated, crampy, See msg Aug 28 2020: Jul 30 2020: Jul 01 2020: upper & lower endoscopy tomorrow Jun 06 2020: May 09 2020: Apr 24 2020: Extreme nausea/fatigue.Wants Rx COMPREHENSIVE ANTEPARTUM NOTE(S): Nov 28 2020: 37 weeks, GBS negative. JM Nov 26 2020: H taken to OB. tkg Nov 19 2020: No complaints today other than ready to have baby. GBS today. Oct 21 2020: Gracie is here for a PNV w/ SO at 32 wks. US today. Good FM. No edema present. Denies concerns/ questions at this time. MK Oct 21 2020: 32wks, growth u/s AGA. Expectant management going forward. JM Oct 10 2020: Gracie is here for visit. Doing well except for feeling tired. She feels this is due to life in general. Hgb 11.8. Reviewed FM, PTL, and Tdap. 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 For hyster . For growth u/s next visit. BRITTNEE Sep 24 2020: Entry for 09/16/20: r/o labor, cervix closed and neg pool/neg nitrazine. CL obtained 45mm, EFW 961 gms. Udip - no signs of UTI, SG 1.025 with +ketones. PTL precautions, reviewed importance of adequate hydration and regular meals. Sep 16 2020: Gracie stopped by our Office this morning after speaking with On-Call Nurse. T-98.1 oral today in our Office and reports that she awoke feeling clammy/hot, periodic nausea, an episode of diarrhea and crampy. Adds that she then had pink covered toilet paper after using the restroom. Good FM . SLOANE Aug 28 2020: Gracie is requesting a script for a breast pump. Reporting good FM. 1 Hr Glucose, CBC drawn today. States she has had a burst of energy the past few days. Voicing no concerns today. Aug 28 2020: 24/4w visit. GTT today. Ny syndrome - EGD/colonoscopy wnl. NT of 2.7 mm - ECHO wnl . Plan for growth US 32w. Depression stable on lexapro. F/u 4w. CM Jul 30 2020: Gracie is here at 20.3 weeks for visit. Feeling well, continues to work. . Baby active. Asking about results from last US. DRTaylor. Jul 30 2020: 20/3w. 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 Had colon polyp, wnl on path. Will get reports. Feeling well. Glucola given for next visit. Anatomy US with MFM wnl. Has ECHO scheduled due to NT of 2.7 mm (normal genetic screening). Depression on lexapro - stable. F/u 4w. CM Jul 01 2020: Zulema is here with SO for PNV. Has started to feel flutters. Continues with Lexapro and helping very much. Having upper & lower endoscopy tomorrow. No edema present today. No compaints. Urine neg/neg. LSS Jul 01 2020: 16/2w visit. 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 Low risk NIPT. Has follow up 07/08 for US to take a closer look at heart views. Has US scheduled q3w with them. Depression - Lexapro continued. F/u 4w. CM Jun 06 2020: Zulema is here for PNV. Shares that the Lexapro is helping tremendously. Does relate that she tires easily. Scheduled to see high risk on Wednesday. Still with c/o continuous nausea and occ vomiting. Using Zofran and does help. Urine neg/neg. LSS Jun 06 2020: 12/5w visit. Depression - lexapro improving. Endoscopies on July 02. Pale - ferritin and CBC drawn. Declines genetic/carrier screening. F/u 4w. CM May 09 2020: 8/5w visit. Depression - increase lexapro. Ny syndrome - encouraged endoscopies second trimester. Nausea improved. Desires NIPT, will draw next visit. M referral sent. No genetic hx, usure of carrier screening. F/u 4w. CM May 09 2020: Gracie reports feeling very angry / emotional -- taking Lexapro 10 mg [place] Depression completed showing . Dr. Pinto increased Lexapro to 20 mg. Genetics questionnaire completed nothing significant. Wants Materni 21. Vomiting 1-2 x per day. Taking Zofran 2 x daily, Senna for constipation. Taking Unisom w/Doxylamine and Vit B 6. kbm Apr 29 2020: TELEHEALTH NOB- Gracie is a 30 yo G 4 P 2 w NOAH 12-14-20 planning a vag del w epid at [facility] using Dr Petty Modi for post disch ped care and to brestfeed. 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 Her Amish works in the [employer] business. The was a surprise but she says a blessing. Gracie plans a hysterectomy PP w [place] [facility] due to her diagnosis of Ny REVIEW OF SYSTEMS: GENERAL - Denies fever, or chills SKIN - Denies rash, new skin lesions, or change in moles EYES - Denies blurred vision, or change in visual acuity EARS - Denies ear pain, or difficulty hearing NOSE - Denies nasal congestion, discharge, or bleeding MOUTH - Denies sore throat, or difficulty swallowing NECK - Denies pain or swelling RESPIRATORY - Denies shortness of breath, cough, wheezing CARDIOVASCULAR - Denies palpitations, chest pain, orthopnea, PND, peripheral edema, syncope or claudication GASTROINTESTINAL - Denies nausea, vomiting, diarrhea, constipation, Denies abdominal pain, melena and or bright red blood GENITOURINARY - Denies dysuria, frequency of urination, urgency, or hesitancy MUSCULOSKELETAL - Denies joint or muscle pain, or back pain NEUROLOGICAL - Denies localized numbness, weakness, or tingling PSYCHIATRIC - Denies depression, anxiety, substance abuse or suicide attempts ENDOCRINE - Denies heat or cold intolerance, weight loss or gain, increasing thirst HEMATO-IMMUNOLOGIC - Denies easy bruising, bleeding, oral ulcerations or recurrent infections GENETICS SCREENING: Age 35+ years: No Thalassemia: No Neural Tube Defect: No Down Syndrome: No DIO-SACHS: No Sickle Cell Disease: No Hemophilia: No Musc. Dystrophy: No Cystic Fibrosis: No-declines screening Rojelio Chorea: No Mental Retardation: No Fragile X: No Other genetic: No Other defects: No SABs/still births: Yes x1 Drugs since LMP: Yes INFECTION HISTORY: High risk AIDS: No High risk Hepatitis: No Exposed to TB: No Exposed to Herpes: No Rash/viral illness since LMP: No History of STD: No MENSTRUAL HISTORY: *Menses Amount/Duration: 3-4 DAYSMenses Regularity: RegularFrequency: monthlyMenarche (Age Onset): 15* PAST SUMMARY: PARITY: 1. Total Pregnancies............ 4 2. Full Term Pregnancies........ 2 3. Premature.................... 0 4. Abortions - Induced.......... 0 5. Abortions - Spontaneous...... 1 6. Ectopics..................... 0 7. Multiple Births.............. 0 8. Living Children.............. 2 PAST #1: Date of :.................. 04/13/12 Gestation Weeks:................ 39 Length of labor(hours):......... 10 Sex:............................ F Weight-lbs:............... 6 Weight-oz:................ 12 Type of Delivery:............... Vag Type of Anesthesia:............. Epidural Place of Delivery:.............. [place] Treatment of Labor?:.... No Comment: IOL SROM, 20 ' 2ND STAGE PAST #2: Date of :.................. 01/10/18 Gestation Weeks:................ 37 Length of labor(hours):......... 13 Sex:............................ F Weight-lbs:............... 7 Weight-oz:................ 0 Type of Delivery:............... Vag Type of Anesthesia:............. Epidural Place of Delivery:.............. [place] Treatment of Labor?:.... No Comment: PUSHED X2. PPD. PAST #3: Date of :.................. 12/31/19 Gestation Weeks:................ 6 Length of labor(hours):......... 0 Sex:............................ UNKNOWN Weight-lbs:............... 0 Weight-oz:................ 0 Type of Delivery:............... Vag Type of Anesthesia:............. None Place of Delivery:.............. HOME Treatment of Labor?:.... No Comment: PHYSICAL EXAMINATION General Appearence: 30 yo female in no acute distress Vital Signs: AF, VSS Heart: RRR without rubs or gallops Lungs: CTA x 2 Breasts: deferred Abdomen: gravid Pelvis: Cervix: 4/90 intact Presentation: cephalic Station: -2 Fetus: Size: AGA Movement: present Heart: present LAB TEST(S) ORDERED SINCE:03/19/20 12/05/2020 TYPE AND SCREEN 12/05/2020 COVID 19 AG RAPID (RN COLLECT) 12/05/2020 CBC W/DIFF, AUTOMATED 11/22/2020 RULE OUT BETA STREP (GRP. B) 09/19/2020 MISCELLANEOUS LAB PROCEDURE 2 09/19/2020 MISCELLANEOUS LAB PROCEDURE 08/28/2020 GLUCOSE CHALLENGE GEST 1H 50G 08/28/2020 CBC-COMPLETE BLOOD CNT NO DIFF 06/06/2020 FERRITIN 06/06/2020 CBC-COMPLETE BLOOD CNT NO DIFF 04/24/2020 PAP I-G W/RFX HRHPV-APTIMA 04/23/2020 CHLAMYDIA/GC CR APTIMA 04/22/2020 L509.8000 04/21/2020 URINE CULTURE 04/19/2020 VITAMIN D,25 HYDROXY 04/19/2020 VITAMIN B12 04/19/2020 RUBELLA IGG 04/19/2020 T AND S-NO CHARGE W/PNP 04/19/2020 HIV - [facility] 04/19/2020 HEPATITIS C ANTIBODY 04/19/2020 HEPATITIS B SURFACE ANTIGEN 04/19/2020 FOLATES, (FOLIC ACID) 04/19/2020 FERRITIN 04/19/2020 COMPREHENSIVE METABOLIC PROFIL 04/19/2020 CBC W/DIFF, AUTOMATED == ==== Order Observation Description Value Ref_Range A* Site == ==== COVID 19 AG RAP NOTE [facility] Labor [facility]~[address] [place], [address]~ TYPE AND SCRE AB SCREEN GEL NEGATIVE ML CBC W/DIFF, AUT NOTE [facility] CBC W/DIFF, AUT WBC 10.7 K/mm3 4.4-11.0 ML CBC W/DIFF, AUT RBC 4.49 M/mm3 4.2-5.4 ML CBC W/DIFF, AUT HGB 13.4 g/dL 12.0-15.0 ML CBC W/DIFF, AUT HCT 39.4 37-47 ML CBC W/DIFF, AUT MCV 87.8 fL 81-99 ML CBC W/DIFF, AUT MCH 29.8 pg 27.0-32.0 ML CBC W/DIFF, AUT MCHC 34.0 g/dL 32-36 ML CBC W/DIFF, AUT RDW CV 13.1 11.6-14.6 ML CBC W/DIFF, AUT RDW SD 42.0 fl 35.1-43.9 ML CBC W/DIFF, AUT PLT 165 K/mm3 150-450 ML CBC W/DIFF, AUT MPV 12.1 fl 6.2-12.0 H ML CBC W/DIFF, AUT NEUT% 76.5 47-70 H ML CBC W/DIFF, AUT LY% 16.9 19-41 L ML CBC W/DIFF, AUT MONO% 4.6 0-10 ML CBC W/DIFF, AUT EO% 1.1 0-5 ML CBC W/DIFF, AUT BASO% 0.2 0-1 ML CBC W/DIFF, AUT IG% 0.700 0.0-0.9 ML IG% - Immature Granulocytes (promyelocytes, myelocytes and metamyelocytes) > 1% indicates that a LEFT SHIFT is Present. CBC W/DIFF, AUT ABSOLUTE NEUT 8.2 X10 3/uL 2.0-7.7 H ML CBC W/DIFF, AUT ABSOLUTE LYMPH 1.80 X10 3/uL 0.83-4.51 ML CBC W/DIFF, AUT NUCLEATED RBC 0 0-5 ML RULE OUT BETA S NOTE [facility] MISCELLANEOUS L NOTE [facility] MISCELLANEOUS L MISC LAB TEST 2 ML TEST RESULT LIMITS HSV CR HSV 1 CR Negative Negative HSV 2 CR Negative Negative TESTING PERFORMED AT [facility]. ORIGINAL REPORT ON FILE IN LAB CONTAINS ADDITIONAL TEST SITE INFORMATION. MISCELLANEOUS L NOTE [facility] MISCELLANEOUS L MISC LAB TEST ML TEST RESULT LIMITS NuSwab Vaginitis (VG) Bacterial Vaginosis, CR Atopobium vaginae High - 2 Abnormal Score BVAB 2 High - 2 Abnormal Score Megasphaera 1 High - 2 Abnormal Score Total Score, add three scores Calculate total score by adding the 3 individual bacterial vaginosis (BV) marker scores together. Total score is interpreted as follows: Total score 0-1: Indicates the absence of BV. Total score 2: Indeterminate for BV. Additional clinical data should be evaluated to establish a diagnosis. Total score 3-6: Indicates the presence of BV. This test was developed and its performance characteristics determined by [employer] It has not been cleared or approved by the Food and Drug Administration. Trisha albicans, CR A, Negative Negative Trisha glabrata, CR A, Negative Negative Trich vag by CR Negative Negative TESTING PERFORMED AT [facility]. ORIGINAL REPORT ON FILE IN LAB CONTAINS ADDITIONAL TEST SITE INFORMATION. GLUCOSE CHALLEN NOTE [facility] GLUCOSE CHALLEN GLU GEST 50G 1H 99 mg/dL 70-140 ML CBC-COMPLETE BL NOTE [facility] CBC-COMPLETE BL WBC 10.1 K/mm3 4.4-11.0 ML CBC-COMPLETE BL RBC 3.95 M/mm3 4.2-5.4 L ML CBC-COMPLETE BL HGB 11.8 g/dL 12.0-15.0 L ML CBC-COMPLETE BL HCT 36.1 37-47 L ML CBC-COMPLETE BL MCV 91.4 fL 81-99 ML CBC-COMPLETE BL MCH 29.9 pg 27.0-32.0 ML CBC-COMPLETE BL MCHC 32.7 g/dL 32-36 ML CBC-COMPLETE BL RDW CV 13.1 11.6-14.6 ML CBC-COMPLETE BL RDW SD 43.5 fl 35.1-43.9 ML CBC-COMPLETE BL PLT 193 K/mm3 150-450 ML CBC-COMPLETE BL MPV 11.5 fl 6.2-12.0 ML FERRITIN NOTE [facility]IE FERRITIN FERRITIN 44 ng/mL 8-252 ML CBC-COMPLETE BL NOTE [facility] CBC-COMPLETE BL WBC 9.4 K/mm3 4.4-11.0 ML CBC-COMPLETE BL RBC 3.99 M/mm3 4.2-5.4 L ML CBC-COMPLETE BL HGB 12.2 g/dL 12.0-15.0 ML CBC-COMPLETE BL HCT 36.0 37-47 L ML CBC-COMPLETE BL MCV 90.2 fL 81-99 ML CBC-COMPLETE BL MCH 30.6 pg 27.0-32.0 ML CBC-COMPLETE BL MCHC 33.9 g/dL 32-36 ML CBC-COMPLETE BL RDW CV 13.5 11.6-14.6 ML CBC-COMPLETE BL RDW SD 44.3 fl 35.1-43.9 H ML CBC-COMPLETE BL PLT 190 K/mm3 150-450 ML CBC-COMPLETE BL MPV 11.4 fl 6.2-12.0 ML L509.8000 NOTE RITCHIE L509.8000 SYPHILIS ABS Non-reactive ML URINE CULTURE NOTE [facility] FOLATES, (FOLIC NOTE [facility] FOLATES, (FOLIC FOLATES 41.30 ng/mL 3.1-55.4 ML FERRITIN NOTE [facility] FERRITIN FERRITIN 65 ng/mL 8-252 ML COMPREHENSIVE M NOTE [facility] COMPREHENSIVE M GLU 82 mg/dL 74-106 ML Please note revised GLUCOSE reference range effective 04/02/2017. COMPREHENSIVE M BUN 8 mg/dL 7-18 ML COMPREHENSIVE CREAT,SERUM 0.65 mg/dL 0.55-1.02 ML The validity of the calculated GFR GFRAA in patients over 70 years has not been determined. Clinical correlation is essential. COMPREHENSIVE M EST GFR 114 mL/min >60 ML Non- GFR Calc COMPREHENSIVE M EST GFR - AA 138 mL/min >60 ML GFR Calc COMPREHENSIVE M BUN/CRE 12.3 RATIO 10-20 ML COMPREHENSIVE M T PROT 7.2 g/dL 6.4-8.2 ML COMPREHENSIVE M ALB 4.2 g/dL 3.2-5.0 ML COMPREHENSIVE M GLOB 3.0 g/dL 2.2-4.2 ML COMPREHENSIVE M A/G 1.4 RATIO 0.9-2.4 ML COMPREHENSIVE M CA,TOTAL 8.8 mg/dL 8.5-10.1 ML COMPREHENSIVE M AST 9 U/L 15-37 L ML COMPREHENSIVE M ALK P 52 U/L 45-117 ML COMPREHENSIVE M ALT 12 U/L 13-56 L ML COMPREHENSIVE M T BILI 0.80 mg/dL 0.20-1.00 ML For patients on eltrombopag therapy, use of Dimension [place] TBIL is not recommended. COMPREHENSIVE M NA 138 mmol/L 136-145 ML COMPREHENSIVE M POTASSIUM 3.7 mmol/L 3.5-5.1 ML COMPREHENSIVE M CL 107 mmol/L 98-107 ML COMPREHENSIVE M CO2 27.0 mmol/L 21.0-32.0 ML COMPREHENSIVE M GAP 4 5-15 L ML HEPATITIS C ANT NOTE [facility] HEPATITIS C ANT HEPATITIS C AB Non-Reactive Nonreactive ML Non Reactive: < 0.8 Equivocal: >/= 0.8 to < 1.0 Reactive: >/= 1.0 The CDC recommends that a reactive/equivocal HCV antibody result be followed up by the HCV Nucleic Acid Amplification test (503049) HEPATITIS B ILA NOTE [facility] HEPATITIS B ILA HEP B SURF AG Non-Reactive Nonreactive ML HIV - [facility] NOTE [facility] HIV - [facility] HIV Non-Reactive Nonreactive ML RUBELLA IGG NOTE [facility]IE RUBELLA IGG RUBELLA IGG Reactive Nonreactive ML Antibody Results Interpretation of Immune Status Non Reactive Presumed Non-Immune Equivocal Equivocal Reactive Presumed Immune VITAMIN D,25 HY NOTE [facility]IE VITAMIN D,25 HY VITAMIN D 25-OH 20.2 ng/mL ML Vitamin D 25(OH) Status Range Deficiency <20 ng/mL (50nmol/L) Insufficiency 20 - 30 ng/mL (50 - 75 nmol/L) Sufficiency 30 - 100 ng/mL (75 - 250 nmol/L) Toxicity >100 ng/mL (>250 nmol/L) VITAMIN B12 NOTE [facility] VITAMIN B12 VITAMIN B12 619 pg/mL 211-911 ML PN N [facility]~[address] [place], [address]~ T AND AB SCREEN GEL NEGATIVE ML CBC W/DIFF, AUT NOTE [facility] CBC W/DIFF, AUT WBC 6.5 K/mm3 4.4-11.0 ML CBC W/DIFF, AUT RBC 4.51 M/mm3 4.2-5.4 ML CBC W/DIFF, AUT HGB 13.3 g/dL 12.0-15.0 ML CBC W/DIFF, AUT HCT 40.1 37-47 ML CBC W/DIFF, AUT MCV 88.9 fL 81-99 ML CBC W/DIFF, AUT MCH 29.5 pg 27.0-32.0 ML CBC W/DIFF, AUT MCHC 33.2 g/dL 32-36 ML CBC W/DIFF, AUT RDW CV 12.7 11.6-14.6 ML CBC W/DIFF, AUT RDW SD 41.2 fl 35.1-43.9 ML CBC W/DIFF, AUT PLT 218 K/mm3 150-450 ML CBC W/DIFF, AUT MPV 10.8 fl 6.2-12.0 ML CBC W/DIFF, AUT NEUT% 63.9 47-70 ML CBC W/DIFF, AUT LY% 27.4 19-41 ML CBC W/DIFF, AUT MONO% 5.3 0-10 ML CBC W/DIFF, AUT EO% 2.6 0-5 ML CBC W/DIFF, AUT BASO% 0.5 0-1 ML CBC W/DIFF, AUT IG% 0.300 0.0-0.9 ML IG% - Immature Granulocytes (promyelocytes, myelocytes and metamyelocytes) > 1% indicates that a LEFT SHIFT is Present. CBC W/DIFF, AUT ABSOLUTE NEUT 4.1 X10 3/uL 2.0-7.7 ML CBC W/DIFF, AUT ABSOLUTE LYMPH 1.77 X10 3/uL 0.83-4.51 ML CBC W/DIFF, AUT NUCLEATED RBC 0 0-5 ML PAP I-G W/RFX H NOTE [facility] PAP I-G W/RFX H DIAG Comment . [facility]CI NEGATIVE FOR INTRAEPITHELIAL LESION OR MALIGNANCY. PREDOMINANCE OF COCCOBACILLI CONSISTENT WITH SHIFT IN VAGINAL SAYRA IS PRESENT. CELLULAR CHANGES ASSOCIATED WITH INFLAMMATION ARE PRESENT. PAP I-G W/RFX H ADEQ Comment . LCI Satisfactory for evaluation. Endocervical and/or squamous metaplastic cells (endocervical component) are present. PAP I-G W/RFX H PERFORM Comment . [facility] Radha Rivera, Supervisory [employer] (ASCP) This liquid based ThinPrep(R) pap test was screened with the use of an image guided system. PAP I-G W/RFX H COMM . . [facility] PAP I-G W/RFX H PAPSMR Comment . LCI The Pap smear is a screening test designed to aid in the detection of premalignant and malignant conditions of the uterine cervix. It is not a diagnostic procedure and should not be used as the sole means of detecting cervical cancer. Both false-positive and false-negative reports do occur. PAP I-G W/RFX H HPV RFLX Comment . LCI The HPV DNA reflex criteria were not met with this specimen result therefore, no HPV testing was performed. Performed at: [address] [id number] Project Estimator: Fariba Kearney MD, Phone: [phone] CHLAMYDIA/GC NA NOTE [facility] CHLAMYDIA/GC NA CHLAMY,NUC ACID Negative Negative [facility]CI CHLAMYDIA/GC NA GC BY NUC ACID Negative Negative LCI Performed at: =[address] [id number] Project Estimator: Fariba Kearney MD, Phone: [phone] *Negative results from patients with symptom onset beyond five days should be treated as presumptive and confirmed by a molecular assay if clinically necessary. Negative results should not be used as the sole basis for treatment or for patient management. COVID 19 AG RAPID (RN COLLECT) *Positive results do not differentiate between SARS-CoV and SARS-CoV-2. If differentation of the specific SARS virus is desired an additional sample and an additional order is required. COVID 19 AG RAPID (RN COLLECT) * This test has not been FDA cleared or approved; the test has been authorized by FDA under an Emergency Use Authorization (EAU) for use by laboratories certified under CLIA that meet the requirements to perform moderate, high, or waived complexity tests. COVID 19 AG RAPID (RN COLLECT) Normal Reference Range: Negative SARS-CoV-2 (COVID 19) Negative RAPID METHOD [employer] COVID19 Ag Card, lateral flow B POSITIVE Group B Beta Streptococcus is not isolated. Mixed Gram Positive Organisms [place] Count 11,000-25,000 MIXC Mixed contaminants. Submit a new specimen if indicated. B POSITIVE == ==== Impression /Plan: 38 wks + 5 days intrauterine in active labor. Preparations in progress for delivery.
[2020-12-05] MEDS: Oxytocin 30 units/NS 500 ml 30 UNITS/500 ML IV.SOLN 334 UNITS IV (08:40)
--- NOTE | 2020-12-05 08:47 | EX.PCM.OBRPT ---
Maternal Data Information Final NOAH: 12/14/20 Final NOAH Source: US <20 weeks Gestational age: 38 weeks 5 days Vaginal Delivery Maternal Presentation Maternal Presentation: Active Labor Operative Information Date of Procedure: 12/05/20 Pre-Operative Diagnosis: IUP Post-Operative Diagnosis: IUP Surgery / Procedure Performed: Spontaneous Vaginal Delivery Type of Anesthesia: Epidural Estimated Blood Loss: 250 cc Findings Description of Procedure: Spontaneous vaginal delivery of a viable female with Apgars of 8/9 from an occiput anterior presentation with clear amniotic fluid and normal three-vessel placenta. No episiotomy or lacerations. Sponges okay. Delivery physician: Sami Mendoza MD. Presentation: Vertex Amniotic Membrane Rupture Type: Artificial Amniotic Fluid Description: Clear Placental Delivery Description: Spontaneous Placenta Disposition: [facility] Cord Vessel Description: 3 Vessels Cord Entanglement: None A Gender: Female (1 minute): 8 (5 minute): 9 Post Vaginal Delivery Medications Given After Delivery: IV Pitocin Episiotomy Description: None Laceration: None Complication Complications: None
--- NOTE | 2020-12-05 09:08 | PCM.DC ---
Documented by User: Dr. Sami Mendoza MD 12/05/20 09:10 Discharge Instructions Diet Discharge Diet: No restrictions Activity Discharge Activity: May Drive (In 1 to 2 days if not taking narcotic pain medication), May Shower and May Take a Tub Bath May resume sexual activity in: 4-6 weeks Additional Activity Instructions:: Nothing in the vagina for 4-6 weeks. You may return to work/school in 6 weeks. Dressing / Incision Call your doctor if you observe: Fever of 101 or Higher, Inability to urinate, Inability to have a bowel movement and Using more than 1 pad per hour Follow Up Care Please Follow Up With: Millie Wolfe DO When: Call [phone] to make an appointment with your doctor in 6 weeks. Test Results: Test results from this visit will be discussed in further detail at your follow-up appointment, if applicable. Discharge Plan Admission Admit Date/Time: 12/05/20 03:12 Primary Reason for Your Visit: Vaginal Delivery Attending Provider: Sami Mendoza Discharge Orders/Prescriptions Prescriptions: Continued Prenatabs FA 1 TABLET tablet 1 tab PO DAILY MDD one RF: 0 ergocalciferol (vitamin D2) 1,000 unit Capsule 2,000 unit PO DAILY RF: 0 escitalopram oxalate [Lexapro] 20 mg Tablet 20 mg PO DAILY RF: 0 Disposition Disposition (needs filled in before D/C Order can be placed): Home, Self Care Documented by User: Dr. Millie Wolfe DO 12/06/20 08:22 Discharge Plan Admission Admit Date/Time: 12/05/20 03:12 Primary Reason for Your Visit: Vaginal Delivery Attending Provider: Sami Mendoza Discharge Orders/Prescriptions Prescriptions: Continued Prenatabs FA 1 TABLET tablet 1 tab PO DAILY MDD one RF: 0 ergocalciferol (vitamin D2) 1,000 unit Capsule 2,000 unit PO DAILY RF: 0 escitalopram oxalate [Lexapro] 20 mg Tablet 20 mg PO DAILY RF: 0 Disposition Disposition (needs filled in before D/C Order can be placed): Home, Self Care
[2020-12-05] MEDS: Acetaminophen 500 MG Tablet 1000 MG PO ×2 (10:58→23:56)
[2020-12-05] MEDS: Ibuprofen 600 MG Tablet PO (19:52)
[2020-12-05] MEDS: Escitalopram Oxalate 20 MG Tablet PO (23:57)
[2020-12-06 00:05] VITALS: BP 111/67; PULSE 64; RESP 16; TEMP 36.4; O2SAT 99
[2020-12-06 03:19] VITALS: BP 120/77; PULSE 69; O2SAT 98
[2020-12-06 03:25] VITALS: BP 120/77; PULSE 73; RESP 18; TEMP 36.2; O2SAT 98
[2020-12-06] MEDS: Ibuprofen 600 MG Tablet PO (06:37)
--- NOTE | 2020-12-06 08:19 | PCM.PN.OB ---
Subjective Subjective day 1. Feeling well. Breast-feeding going well. Lochia minimal. Objective Data Objective Data Vital Signs: Vital Signs Temp Pulse Resp BP Pulse Ox 97.2 F L 73 18 120/77 98 12/06/20 03:25 12/06/20 03:25 12/06/20 03:25 12/06/20 03:25 12/06/20 03:25 Oxygen Delivery Method Room Air Weight: 79.4 kg Body Mass Index (BMI) 25.1 Intake & Output: Intake and Output for Last 24 Hours 12/04/20 12/05/20 12/06/20 23:59 23:59 23:59 Intake Total 2136.67 / 2136.67 Output Total 1100 / 1100 Balance 1036.67 / 1036.67 Lab / Micro Data Result Diagrams: 12/05/20 03:25 Micro: Microbiology 12/05/20 04:27 Nasal Secretion SARS-CoV-2 Antigen (Rapid) - Final Physical Exam Const alert, oriented x3 and no apparent distress HEENT normocephalic Head and Scalp: atraumatic Eyes PERRL Neck full ROM Resp normal respiratory effort and no retractions Cardio regular rate GI normal to inspection, nondistended, normoactive bowel sounds GI Narrative: Uterus 2 cm below umbilicus Extremity normal to inspection and no pedal edema Neuro no focal motor deficits and no sensory deficits noted Psych mental status grossly normal Assessment & Plan (1) Vaginal delivery: PLAN: day 1 status post . Breast-feeding. History of Ny syndrome, follow-up . History of anxiety/depression, stable. Home today. 2-week telehealth visit and 6-week post visit
[2020-12-06 08:32] VITALS: BP 113/74; PULSE 62; O2SAT 96
--- NOTE | 2020-12-06 09:50 | CASEMGMT ---
Social Work Brief Assessment Labor and Delivery Unit Patient Address: [address] [place] [address] [address], [place] [address] Phone number: [phone] Date of Referral/Notification: 12/05/2020 Time of Referral: 1342 Referred By: Dr. Mendoza Date of Intervention: 12/06/2020 Time of Intervention: 0950 Reason for Referral: Maternal history of depression, on Lexapro for 2 years Informant: Medical record and mother of baby (MOB) Zulmea Castelan; father of baby (FOB) Rah Castelan present for part of conversation. History: ROE is a 30-year-old female, to the FOB for the last 1 year. [place] baby is the second child for the parents together. MOB has a total of 3 children. MOB is 4, para 2 now 3. care is reported as adequate. Infant delivered weighing 6 pounds 6 ounces. Apgars 8 and 9 at 1 and 5 minutes of life respectively. Minor children for the parents include: Tyrell Hall (born 02.10.2013), Iain Soares (born 01.10.2018), and baby girl Olena Castelan (born 12.05.2020). During private conversation with the MOB, MOB denied any history of domestic violence or safety concerns in the household. MOB has a history of depression and anxiety. Reports has been on Lexapro for 2 years and that it is working well. [place] depression screen completed during in April 2020 was a score of 17 out of 30, and today the score is a 7 which falls below the threshold of depression. MOB denies any history of suicidal ideation, planning, intent or attempts. MOB denies any history of substance use issues. 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 FOB works full-time in [employer]. Assessment: MOB and FOB both cooperative and pleasant, willing to speak with this technical writer. It is reported that housing, transportation, and access to supplies are adequate. MOB reports to have good support from her mother, [id number], siblings, and the FOB. MOB reports intent to remain on antidepressant medication in the timeframe. Reports understanding of the importance to seek follow-up if symptoms worsen or become distressing. MOB [place] depression screen shows significant improvement as compared to April. MOB reports had actually gone off the Lexapro for short time, and realized that medication is helpful, and in April went back on medication. Reports has seen significant improvement in mood and anxiety since. Discussed the addition of counseling, as a supplemental intervention if medication becomes not quite enough. Processed some of the MOB thoughts and feelings regarding trying counseling. Emotional support and encouragement provided. Observed MOB to handle the baby, and was appropriate. No voiced concerns from nursing regarding parent-child interactions or bonding. Provided MOB with referral information on mood and anxiety disorders. MOB excepting of information. Plan: MOB and will discharge home. Resources provided for mood and anxiety disorders. MOB reports will have support upon home-going and plans to stay on antidepressant medication. No further needs requested or indicated. -NANO Ortega, ROSALINO *This note was generated with Omnisioation software. It may contain incorrect words, spelling, and punctuation that were not noted in review of the chart prior to signing*
[2020-12-06 10:00] VITALS: BP 113/74; PULSE 68; RESP 18; TEMP 36.3
--- NOTE | 2020-12-10 14:21 | NURSING ---
left a message and call back number
== END 2020-12-06 13:55 | disposition home or self-care (01) | DRG 807 ==
LOC: WPOUT 03:13 → WP 03:13
PROVIDERS: Admitting Provider Obstetrics & Gynecology; Visit Provider Obstetrics & Gynecology
DX: O99.52 Diseases of the respiratory system complicating childbirth (principal); Z37.0 Single live birth; J45.909 Unspecified asthma, uncomplicated; Z15.09 Genetic susceptibility to other malignant neoplasm; Z3A.38 38 weeks gestation of pregnancy; F17.290 Nicotine dependence, other tobacco product, uncomplicated; O99.334 Smoking (tobacco) complicating childbirth
CPT/HCPCS: 59025; 59050; 85025; 86850; 86900; 86901; 87426; 99218; J7120; G0378; J2405

== ENCOUNTER 2021-05-05 14:38 | Outpatient (CLI) | payer OTHER, SELFPAY ==
[2021-05-05 18:09] LABS: Absolute Lymphocyte Count 1.48 X10^3/uL (0.83-4.51); Absolute Neutrophil Count 2.6 X10^3/uL (2.0-7.7); Basophil# 0.03 X10^3/uL; Basophil% 0.6 % (0-1); Eosinophil# 0.25 X10^3/uL; Eosinophils% 5.4 % (0-5); Hemoglobin 13.8 g/dL (12.0-15.0); Lymphocyte # 1.48 X10^3/ul (0.83-4.51); Lymphocyte % 31.8 % (19-41); Mean Corp Hgb Conc 32.9 g/dL (32-36); Mean Corpuscular Hgb 29.2 pg (27.0-32.0); Mean Corpuscular Volume 88.8 fL (81-99); Monocyte# 0.32 X10^3/uL; Monocyte% 6.9 % (0-10); NRBC Flagged by Analyzer 0 % (0-5); Neutrophil # 2.56 X10^3/uL (2.7-7.7); Neutrophil % 55.1 % (47-70); Platelet Count 197 K/mm3 (150-450); RBC Distribution Width CV 12.5 % (11.6-14.6); RBC Distribution Width SD 41.2 fl (35.1-43.9); Red Blood Count 4.73 M/mm3 (4.2-5.4); White Blood Count 4.7 K/mm3 (4.4-11.0)
[2021-05-05 18:49] LABS: ALB/GLOB Ratio 1.2 RATIO (0.9-2.4); AST(SGOT) 13 U/L (15-37); Alanine Aminotransfer ALT/SGPT 14 U/L (13-56); Albumin, Serum 3.8 g/dL (3.2-5.0); Alkaline Phosphatase 64 U/L (45-117); Anion Gap 3 (5-15); BUN 9 mg/dL (7-18); Calcium,Total 8.8 mg/dL (8.5-10.1); Chloride 109 mmol/L (98-107); Creatinine, Serum 0.75 mg/dL (0.55-1.02); EST Glomerular Filtration Rate 96 mL/min (>60); Est Glom Filt Rate - Afr Amer 116 mL/min (>60); Globulin 3.1 g/dL (2.2-4.2); Glucose 86 mg/dL (74-106); Protein, Total 6.9 g/dL (6.4-8.2); Sodium Level 137 mmol/L (136-145); Thyroid Stim Hormone (TSH) 2.74 uIU/mL (0.358-3.74)
== END 2021-05-05 23:59 | disposition home or self-care (01) ==
LOC: MFPLAB 14:39
PROVIDERS: Visit Provider Family Medicine
DX: F32.2 Major depressive disorder, single episode, severe without psychotic features (principal)
CPT/HCPCS: 36415; 80053; 84443; 85025

== ENCOUNTER → 2023-10-22 | Outpatient (CLI) | payer OTHER, SELFPAY ==
[2023-10-22 17:49] LABS: Hematocrit 39.2 % (37-47); Hemoglobin 13.2 g/dL (12.0-15.0); Mean Corp Hgb Conc 33.7 g/dL (32-36); Mean Corpuscular Hgb 29.5 pg (27.0-32.0); Mean Corpuscular Volume 87.7 fL (81-99); Mean Platelet Vol. 12.3 fl (6.2-12.0); Platelet Count 220 K/mm3 (150-450); RBC Distribution Width CV 12.6 % (11.6-14.6); RBC Distribution Width SD 41.1 fl (35.1-43.9); Red Blood Count 4.47 M/mm3 (4.2-5.4); White Blood Count 7.8 K/mm3 (4.4-11.0)
[2023-10-22 18:09] LABS: Erythrocyte Sedimentation Rate 1 mm/hr (0-30)
[2023-10-22 18:16] LABS: ALB/GLOB Ratio 1.2 RATIO (0.9-2.4); AST(SGOT) 14 U/L (15-37); Alanine Aminotransfer ALT/SGPT 14 U/L (13-56); Albumin, Serum 4.1 g/dL (3.2-5.0); Alkaline Phosphatase 76 U/L (45-117); Anion Gap 7 (5-15); BUN 6 mg/dL (7-18); BUN/Creat Ratio 8.1 RATIO (10-20); Calcium,Total 9.2 mg/dL (8.5-10.1); Chloride 106 mmol/L (98-107); Creatinine, Serum 0.74 mg/dL (0.55-1.02); EST Glomerular Filtration Rate 96 mL/min (>60); Est Glom Filt Rate - Afr Amer 117 mL/min (>60); Globulin 3.3 g/dL (2.2-4.2); Glucose 92 mg/dL (74-106); Potassium 3.3 mmol/L (3.5-5.1); Protein, Total 7.4 g/dL (6.4-8.2); Sodium Level 139 mmol/L (136-145)
[2023-10-22 18:17] LABS: hCG Titer Quant., Serum < 1 mIU/mL (1-3)
[2023-10-24 08:08] LABS: PROGESTERONE 0.4 ng/mL (.)
== END | disposition home or self-care (01) ==
LOC: MFPLAB 16:08
PROVIDERS: PCP Family Medicine; Visit Provider Family Medicine
DX: R10.2 Pelvic and perineal pain (principal); O03.9 Complete or unspecified spontaneous abortion without complication
CPT/HCPCS: 80053; 84144; 84702; 85027; 85652

== ENCOUNTER → 2023-10-26 | Outpatient (CLI) | payer OTHER, SELFPAY ==
--- NOTE | 2023-10-26 15:16 | US_ITS ---
EXAM: US PELVIS TRANSABDOMINAL AND TRANSVAGINAL, COMPLETE CLINICAL INDICATION: Miscarriage/ Pain TECHNIQUE: Transabdominal and transvaginal pelvic ultrasound was performed with grayscale and color Doppler imaging. Transvaginal imaging was used for better evaluation of the endometrium and adnexa. COMPARISON: No relevant prior studies available. FINDINGS: UTERUS/CERVIX: Uterus measures 8.7 x 4.7 x 5.9 cm. The endometrium measures 1.2 cm. Anteverted. There is no uterine mass. RIGHT OVARY: The right ovary is surgically absent. LEFT OVARY: The left ovary measures 3.4 x 2.4 x 2.6 cm. There is a 1.7 x 2.3 x 2.0 cm anechoic structure in the left ovary compatible with cysts. Blood flow is present in the left ovary. FREE FLUID: None. BLADDER: Unremarkable as visualized. Wall is normal thickness for degree of distention. US/Pelvic w/ Transvaginal IMPRESSION: Left ovarian cyst. No other abnormalities are identified. Electronically Signed: Aki Beatty MD at 0:19 EDT ,
== END | disposition home or self-care (01) ==
LOC: US 15:16
PROVIDERS: PCP Family Medicine; Referring Provider Family Medicine; Visit Provider Family Medicine
DX: R10.2 Pelvic and perineal pain (principal); O03.9 Complete or unspecified spontaneous abortion without complication
CPT/HCPCS: 76830; 76856

== ENCOUNTER → 2023-11-19 | Outpatient (CLI) | payer OTHER, SELFPAY ==
--- NOTE | 2023-11-19 15:11 | CT_ITS ---
STUDY: CT ABDOMEN AND PELVIS WITH CONTRAST REASON FOR EXAM: Female, 33 years old. left ovarian cyst, possible bowel inflammation, miscarriage, lync RADIATION DOSAGE (If Supplied By Facility): CTDIvol = ( 11.01 ) mGy, DLP = ( 818.13 ) mGycm TECHNIQUE: Transaxial images were obtained from the dome of the diaphragm to the symphysis pubis with oral contrast. Oral and amp; IV Readi-CAT and amp; 100mL Isovue-300 was administered. Sagittal and coronal images were reconstructed. Individualized dose optimization techniques were used for this CT. COMPARISON: 08/27/2006. FINDINGS: The visualized lung bases are unremarkable. The visualized portions of the heart are within normal limits. Normal liver. Normal gallbladder and extrahepatic biliary system. Normal spleen. Normal pancreas. Normal bilateral adrenal glands. Normal right kidney. Normal left kidney. Normal visualized stomach. Normal small intestine. Normal colon. The appendix is visualized and appears normal. Normal abdominal aorta. Normal inferior vena cava. Normal retroperitoneum. Normal urinary bladder. Normal visualized uterus. 3.2 cm simple cyst. Normal abdominal wall. Normal osseous structures. CT/Abdomen/Pelvis WITH Contrast IMPRESSION: 3.2 cm left simple cyst. No other definite acute or significant abnormality seen. Electronically Signed: Dmitriy Mclaughlin MD at 18:09 EDT ,
== END | disposition home or self-care (01) ==
PROVIDERS: PCP Family Medicine; Referring Provider Family Medicine; Visit Provider Family Medicine
DX: N83.202 Unspecified ovarian cyst, left side (principal)
CPT/HCPCS: 74177; Q9967

== ENCOUNTER → 2023-12-13 | Outpatient (CLI) | payer OTHER, SELFPAY ==
--- NOTE | 2023-12-13 12:35 | EMB_PTH ---
PATIENT: MEAGAN AVILA LOC: [facility] U#:[id number] AGE/SX: 33/F ROOM: RE12/13/[address]: Dr. Bonita Barboza MD : 1990 BED: DIS: 12/13/2023 SPEC #: [id number] RECD: 12/14/23 11:09 STATUS: JIN RERomero #: [id number] GALLO: 12/13/23 12:[address]: Bonita Barboza DEPT: SURGICAL PATHOLOGY RECD BY: Ron Pineda ENTERED: 12/14/23 11:10 SP TYPE: ENDOM BX/C FRANCISCO DR: Dr. Guerrero Quijano MD Tissues: Endometrium, NOS Procedures: Surgery Specimen Level IV HEADER OPERATION: Endometrial biopsy PRE-OP DIAGNOSIS: Abnormal uterine bleeding TISSUE SUBMITTED: Endometrial tissue MICROSCOPIC DIAGNOSIS Endometrial biopsy: Proliferative endometrium. 12/15/2023 MICROSCOPIC DESCRIPTION Slides are reviewed. GROSS DESCRIPTION Received is one container labeled with the patient's name and not further designated. The specimen consists of multiple irregular fragments of gross-pink soft tissue that in aggregate measure 2.5 x 1.0 x 0.1 cm. The specimen is totally submitted in one cassette. 12/14/2023 TC:4 CPT:03828
[2023-12-17 12:10] LABS: HPV APTIMA, High Risk Negative (Negative)
== END | disposition home or self-care (01) ==
LOC: US 12-15 13:23 → WOBLAB 12-16 14:51
PROVIDERS: PCP Family Medicine; Referring Provider Obstetrics & Gynecology; Visit Provider Obstetrics & Gynecology
DX: Z12.4 Encounter for screening for malignant neoplasm of cervix (principal); N93.9 Abnormal uterine and vaginal bleeding, unspecified
CPT/HCPCS: 87624; 88175; 88305; G0145

== ENCOUNTER → 2023-12-16 | Outpatient (CLI) | payer OTHER, SELFPAY ==
--- NOTE | 2023-12-16 14:18 | US_ITS ---
STUDY: ULTRASOUND OF THE FEMALE PELVIS - COMPLETE REASON FOR EXAM: Female, 33 years old. ovarian cyst, esquivel syndrome LMP: TECHNIQUE: Transabdominal and transvaginal TECHNICAL QUALITY: Adequate. COMPARISON: December 02, 2023 FINDINGS: The uterus is anteverted and is in a midline position. The uterus measures 8.3 x 5.7 x 4.7 cm. Normal uterine cervix. The endometrium measures 9.2 mm in thickness, and is trilaminar. There is no demonstrated endometrial mass. Myometrium is heterogeneous and may be consistent with known endometriosis. There is no discrete fibroid. I.U.D. - The patient does not have an I.U.D. Right ovary is not visualized. There is no adnexal mass. The left ovary is visualized. The left ovary measures 3.6 x 2.7 x 2.6 cm. There are multiple follicles and a dominant cyst measuring 1.41 x 1.26 cm. There is no visualized left adnexal mass or complex lesion. There is normal arterial and normal venous vascularity. There is trace of fluid in the cul-de-sac. The pre void volume of the bladder was 223 ml. Left ovarian cyst has decreased in size since prior exam US/Pelvic w/ Transvaginal IMPRESSION: Persistent left ovarian cyst which has decreased in size since prior exam. Electronically Signed: Kel Robbins MD at 16:38 EDT ,
== END | disposition home or self-care (01) ==
PROVIDERS: PCP Family Medicine; Referring Provider Obstetrics & Gynecology; Visit Provider Obstetrics & Gynecology
DX: N83.209 Unspecified ovarian cyst, unspecified side (principal); Z15.09 Genetic susceptibility to other malignant neoplasm
CPT/HCPCS: 76830; 76856

== ENCOUNTER → 2023-12-21 | Outpatient (CLI) | payer OTHER, SELFPAY ==
[2023-12-21 15:22] LABS: Absolute Lymphocyte Count 2.45 X10^3/uL (0.83-4.51); Absolute Neutrophil Count 4.2 X10^3/uL (2.0-7.7); Basophil# 0.05 X10^3/uL; Basophil% 0.7 % (0-1); Eosinophil# 0.32 X10^3/uL; Eosinophils% 4.2 % (0-5); Hematocrit 37.3 % (37-47); Hemoglobin 12.2 g/dL (12.0-15.0); Lymphocyte # 2.45 X10^3/ul (0.83-4.51); Lymphocyte % 32.3 % (19-41); Mean Corp Hgb Conc 32.7 g/dL (32-36); Mean Corpuscular Hgb 29.5 pg (27.0-32.0); Mean Corpuscular Volume 90.1 fL (81-99); Mean Platelet Vol. 11.3 fl (6.2-12.0); Monocyte# 0.51 X10^3/uL; Monocyte% 6.7 % (0-10); NRBC Flagged by Analyzer 0 % (0-5); Neutrophil # 4.24 X10^3/uL (2.7-7.7); Neutrophil % 55.8 % (47-70); Platelet Count 202 K/mm3 (150-450); RBC Distribution Width CV 13.1 % (11.6-14.6); RBC Distribution Width SD 42.9 fl (35.1-43.9); Red Blood Count 4.14 M/mm3 (4.2-5.4); White Blood Count 7.6 K/mm3 (4.4-11.0)
== END | disposition home or self-care (01) ==
LOC: LAB 14:17
PROVIDERS: PCP Family Medicine; Referring Provider Obstetrics & Gynecology; Visit Provider Obstetrics & Gynecology
DX: Z15.09 Genetic susceptibility to other malignant neoplasm (principal); Z13.29 Encounter for screening for other suspected endocrine disorder
CPT/HCPCS: 36415; 84443; 85025; 86304

== ENCOUNTER 2023-12-28 07:50 | Day surgery (SDC) | payer OTHER, SELFPAY ==
[2023-12-28] VITALS (9 sets, daily range): BP systolic 92–106; BP diastolic 63–73; PULSE 62–91; RESP 16; TEMP 36.1–36.4; O2SAT 95–98; BMI 20.7
[2023-12-28 08:24] LABS: Internal QC Validated? YES +Cl - CLEAR BKGD; Pregnancy, Urine Negative Negative
--- NOTE | 2023-12-28 08:30 | PRE.ANES_ITS ---
ASA Classification* ASA Classification ASA Classification: 2 Assessment & Plan Anesthesia* Anesthesia Assessment Anesthesia Assessment: Discussed sedation and/or anesthesia options, risks, benefits, and alternatives with patient/parents/legal guardian/POA. Questions invited. The patient/parents/legal guardian/POA seems to understand and agrees to proceed with anesthesia plan. Reviewed the physical assessment, medical history, allergy history and patient home medications list prior to surgery/procedure/anesthetic and documented any changes. Performed airway and anesthesia risk assessments. Anesthesia Type Anesthesia Type: MAC History Source History Obtained from:: Patient and Chart Anesthesia Focused Assessment* Temperature: 97.4 F Pulse Rate: 74 Blood Pressure: 106/73 Respiratory Rate: 16 Pulse Ox: 95 Oxygen Delivery Method: Room Air Airway Assessment Mouth opens: >3 cm Mallampati Score: III Teeth Condition: Intact Neck Range of motion (ROM): Full ROM Focused Labs Anesthesia Preop lab: CBC WBC 7.6 K/mm3 (4.4-11.0) 12/21/23 14:25 RBC 4.14 M/mm3 (4.2-5.4) L 12/21/23 14:25 Hgb 12.2 g/dL (12.0-15.0) 12/21/23 14:25 Hct 37.3 % (37-47) 12/21/23 14:25 Plt Count 202 K/mm3 (150-450) 12/21/23 14:25 CHEMISTRY Potassium 3.3 mmol/L (3.5-5.1) L 10/22/23 16:08 Sodium 139 mmol/L (136-145) 10/22/23 16:08 Magnesium 1.9 mg/dL (1.8-2.4) 03/15/15 09:17 BUN 6 mg/dL (7-18) L 10/22/23 16:08 Creatinine 0.74 mg/dL (0.55-1.02) 10/22/23 16:08 Glucose 92 mg/dL (74-106) 10/22/23 16:08 TSH 1.230 uIU/mL (0.358-3.740) 12/21/23 14:25 COAG HCG, Quant < 1 mIU/mL (1-3) 10/22/23 16:08 Urine Test Negative Negative 12/28/23 08:00 Tst Clinic Negative 12/13/23 12:34 Pre-Assessment Diagnosis/Proposed Procedure Planned Operative Procedure(s): CSCOPE Anesthesia History Anesthesia History - customer account technician: Anesthesia History - customer account technician Hx Hospitalization No 12/27/23 11:19 Any Problems With Anesthesia No 12/27/23 11:19 Cholinesterase deficiency No 12/27/23 11:19 You/Your Family Experience No 12/27/23 11:19 fever (hyperthermia) with Relationship Recent Exposure to Contagious No 12/28/23 08:10 Disease Does patient have nerve No 12/27/23 11:19 stimulator Patient instructed to have device shut off --Does patient have Pacemaker No 12/28/23 08:10 or ICD? When Was Last Pacemaker Check QUESTION #4 FULL TEXT: You/Your Family Experience fever (hyperthermia) with Anesthesia Last Oral Intake Last Oral intake: Last Oral Intake NPO since 00:00 12/28/23 08:10 Meds taken in AM with sips of No 12/28/23 08:10 water? Meds patient instructed to take am of surgery PONV PONV - customer account technician: PONV - customer account technician Female Yes 12/27/23 11:19 HX of Motion Sickness No 12/27/23 11:19 HX of N/V After Surgery No 12/27/23 11:19 Non-Smoker No 12/27/23 11:19 Duration of Surgery greater No 12/27/23 11:19 than 60 minutes Number of Risk Factors 1 12/27/23 11:19 PONV Score Low Risk 12/27/23 11:19 Height & Weight Height & Weight: Anesthesia: Height & Weight Height 5 ft 10 in 12/28/23 08:10 Weight: 65.6 kg 12/28/23 08:10 Body Mass Index (BMI) 20.7 12/28/23 08:10 Respiratory Assessment Respiratory Assessment - customer account technician: Respiratory Tract Infection Hx - customer account technician Hx Respiratory Tract Infection No 12/27/23 11:19 STOP Sleep Apnea STOP Sleep Apnea - customer account technician: STOP Sleep Apnea - customer account technician Hx Hypertension No 12/27/23 11:19 Hx Sleep Apnea No 12/27/23 11:19 CPAP BIPAP Do you snore loudly (louder No 12/27/23 11:19 than talking or can be heard Do you often feel tired/ No 12/27/23 11:19 fatigued/ sleepy during daytime? Has anyone observed you stop No 12/27/23 11:19 breathing during sleep? STOP Results Negative 12/27/23 11:19 QUESTION #5 FULL TEXT : Do you snore loudly (louder than talking or can be heard through closed doors)? Tobacco Use History Tobacco Use History - customer account technician: Tobacco Use History - customer account technician Tobacco Use Smoking Status Current every day smoker 12/27/23 11:19 Hx Tobacco Use Yes 12/27/23 11:19 Years Smoking Packs Smoked per Day Smoking Cessation Date was within the last 15 years Hx Smoking Cessation Date Hx Smoking Cessation Counseling Any additional information?: Yes Tobacco Use: Vapor (Patient vape today.) Hematologic Medial History Hematologic Hx - customer account technician: Hematologic Medical Hx - cotton feeder Hx of Blood Transfusion No 12/27/23 11:19 Hx of Transfusion in last 3 No 12/27/23 11:19 Months Date of Last Transfusion (if within last 3 months) Ever experience any problems No 12/27/23 11:19 with transfusion(s)? Specify any problems Hx of Preganancy in last 3 N/A 12/27/23 11:19 Months Nurse Filling Out Transfusion NBUCHER 12/27/23 11:19 & Questions: Date: 12/27/23 12/27/23 11:19 Time: 11:20 12/27/23 11:19 Patient unable to answer at this time (ie. 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 Asthma Anxiety Depression Home Medications ?Medication ?Instructions ?Recorded ?Last Taken ?Type vits,calcium no.78-iron 1 tab PO DAILY 11/16/17 12/04/20 22:00 History fumarate-folic acid 29 mg-1 mg tablet (Prenatabs FA) ergocalciferol (vitamin D2) 1,000 2,000 unit PO DAILY 12/05/20 12/04/20 22:00 History unit capsule escitalopram oxalate 20 mg tablet 20 mg PO DAILY see provider 12/05/20 12/04/20 22:00 History (Lexapro) hydroxyzine HCl 25 mg tablet 25 mg PO QHS 12/13/23 Unknown History pyridoxine (vitamin B6) 10 mg 10 mg PO QDAY 12/13/23 Unknown History tablet Allergy/AdvReac Type Severity Reaction Status Date / Time No Known Allergies Allergy Verified 12/28/23 08:09 Family History Grandmother COPD (chronic obstructive pulmonary disease) Father Colon cancer, Onset Age: 34 at 38 Surgical History H/O colonoscopy History of surgery Social History adopted: No household members: spouse and children housing: house number of children: 3 current occupational status: employed current occupation: [employer] current occupational exposures/hazards: Yes Smoking Status: Current every day smoker tobacco type: e-cigarettes alcohol intake: never substance use type: does not use seatbelt use: always do you feel safe at home: Yes 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
--- NOTE | 2023-12-28 09:31 | PCM.HP.STD ---
HPI - General General Date of Admission: 12/28/23 Date of Service: 12/28/23 Chief Complaint: Screening colonoscopy HPI Narrative MEAGAN AVILA, is a 33 F who presents for colonoscopy. She has a known history of Ny syndrome. Her last colonoscopy was 2020 her father actually in his late 30s of colon cancer. She presents today for colonoscopy. 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 Asthma Anxiety Depression Home Medications ?Medication ?Instructions ?Recorded ?Last Taken ?Type vits,calcium no.78-iron 1 tab PO DAILY 11/16/17 12/04/20 22:00 History fumarate-folic acid 29 mg-1 mg tablet (Prenatabs FA) ergocalciferol (vitamin D2) 1,000 2,000 unit PO DAILY 12/05/20 12/04/20 22:00 History unit capsule escitalopram oxalate 20 mg tablet 20 mg PO DAILY see provider 12/05/20 12/04/20 22:00 History (Lexapro) hydroxyzine HCl 25 mg tablet 25 mg PO QHS 12/13/23 Unknown History pyridoxine (vitamin B6) 10 mg 10 mg PO QDAY 12/13/23 Unknown History tablet Allergy/AdvReac Type Severity Reaction Status Date / Time No Known Allergies Allergy Verified 12/28/23 08:09 Family History Grandmother COPD (chronic obstructive pulmonary disease) Father Colon cancer, Onset Age: 34 at 38 Surgical History H/O colonoscopy History of surgery Social History adopted: No household members: spouse and children housing: house number of children: 3 current occupational status: employed current occupation: [employer] current occupational exposures/hazards: Yes Smoking Status: Current every day smoker tobacco type: e-cigarettes alcohol intake: never substance use type: does not use seatbelt use: always do you feel safe at home: Yes 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 Constitutional Constitutional: Reports systems reviewed and no addt'l complaints, except as documented Eyes Eyes: Reports systems reviewed and no addt'l complaints, except as documented ENT HEENT: Reports systems reviewed and no addt'l complaints, except as documented Cardiovascular Cardiovascular: Reports systems reviewed and no addt'l complaints, except as documented Respiratory/Chest Respiratory/Chest: Reports systems reviewed and no addt'l complaints, except as documented Gastrointestinal Gastrointestinal: Reports systems reviewed and no addt'l complaints, except as documented Vital Signs Vital Signs Vital Signs: 12/28/23 08:10 12/28/23 08:10 12/28/23 08:38 Temperature 97.4 F L 97.4 F L Temperature Source Temporal Pulse Rate 74 74 Respiratory Rate 16 16 Respiratory Pattern Normal Blood Pressure 106/73 106/73 Blood Pressure Mean 84 Blood Pressure Source Monitor Blood Pressure Position Semi-Fowlers Blood Pressure Location Right Arm Pulse Ox 95 95 Oxygen Delivery Method Room Air Room Air Weight Weight: 144 lb 9.972 oz Body Mass Index (BMI) 20.7 Physical Exam Narrative She is alert and oriented x 3. She is in no acute distress. Abdomen is soft nontender nondistended. Results Lab / Micro Data Labs: Laboratory Results - last 24 hr 12/28/23 08:00: Urine Test Negative Assessment & Plan Assessment/Plan (1) Ny syndrome: Charges/Coding Visit Charges Inpatient E&M: 99491 Init Hosp L1
--- NOTE | 2023-12-28 10:08 | PCM.POST.ANE ---
Anesthesia: Postop Eval I Current Vital Signs Temperature: 97 F Pulse Rate: 88 Blood Pressure: 92/63 Respiratory Rate: 16 Pulse Ox: 98 Oxygen Delivery Method: Room Air Assessment Airway patent: Yes Spontaneous unlabored respirations: Yes Mental status: Asleep nausea: No Vomiting: No Anesthesia Complication: No Fluid Hydration Crystalloid volume administer (ml): 60 Total IV fluid infused: 60 Progress Note Anesthesia document: Postop Eval 1 completed: Yes
--- NOTE | 2023-12-28 10:10 | OP.CCLET_ITS ---
12/28/2023 Guerrero Quijano [address] [place] [address] Re : Colonoscopy procedure for Gracie Castelan Dear Dr. Quijano This procedure was performed on Thursday, December 28, 2023. My impressions and recommendations are as follows: Impressions : - The entire examined colon is normal on direct and retroflexion views. - No specimens collected. Recommendations : - Discharge patient to home (ambulatory). - High fiber diet. - Repeat colonoscopy in 1 year for surveillance. (due to Ny syndrome) - Return to my office PRN. - Continue present medications. My findings are described in the full procedure note, which is enclosed. If I can be of further assistance, please feel free to contact me at . Sincerely, Jean Escobar MD 12/28/2023 10:09:58 AM This report has been signed electronically.
--- NOTE | 2023-12-28 10:10 | OP.COLON_ITS ---
Patient Name: Gracie Castelan Procedure Date: 12/28/2023 9:28 AM Date of : 1990 Age: 33 Procedure: Colonoscopy Indications: High risk colon cancer surveillance: Personal history of hereditary nonpolyposis colorectal cancer (Ny Syndrome) Providers: Jean Escobar MD Referring MD: Guerrero Quijano Medicines: Monitored Anesthesia Care Patient Profile: Refer to note in patient chart for documentation of history and physical. Last Colonoscopy: several years ago. Complications: No immediate complications. Estimated blood loss: None. Procedure: Pre-Anesthesia Assessment: - Prior to the procedure, a History and Physical was performed, and patient medications and allergies were reviewed. The patient's tolerance of previous anesthesia was also reviewed. The risks and benefits of the procedure and the sedation options and risks were discussed with the patient. All questions were answered, and informed consent was obtained. Prior Anticoagulants: The patient has taken no anticoagulant or antiplatelet agents. ASA Grade Assessment: I - A normal, healthy patient. After reviewing the risks and benefits, the patient was deemed in satisfactory condition to undergo the procedure. After I obtained informed consent, the scope was passed under direct vision. Throughout the procedure, the patient's blood pressure, pulse, and oxygen saturations were monitored continuously. The adult colonoscope was introduced through the anus and advanced to the cecum, identified by appendiceal orifice and ileocecal valve. The ileocecal valve, appendiceal orifice, and rectum were photographed. The entire colon was well visualized. The colonoscopy was performed without difficulty. The patient tolerated the procedure well. The quality of the bowel preparation was adequate. Moderate Sedation: See the other procedure note for documentation of moderate sedation with intraservice time. Scope In: 9:44:00 AM Scope Withdrawal Time 0 hours 5 minutes 48 seconds Scope Out: 9:59:03 AM Total Procedure Duration Time 0 hours 15 minutes 3 seconds Findings: The perianal and digital rectal examinations were normal. The entire examined colon appeared normal on direct and retroflexion views. Impression: - The entire examined colon is normal on direct and retroflexion views. - No specimens collected. Recommendation: - Discharge patient to home (ambulatory). - High fiber diet. - Repeat colonoscopy in 1 year for surveillance. (due to Ny syndrome) - Return to my office PRN. - Continue present medications. eJan Escobar MD 12/28/2023 10:09:58 AM This report has been signed electronically. Number of Addenda: 0 Note Initiated On: 12/28/2023 9:28 AM
--- NOTE | 2023-12-28 11:58 | PCM.POSTANE2 ---
Anesthesia Postop Eval I Sum Postop Eval Completion status Anesthesia document: Postop Eval 1 completed: Yes Anesthesia Postop Eval I Summary Anesthesia Postop Eval I Summary: Anesthesia Postop Eval I: Assessment Summary Airway patent Yes 12/28/23 10:09 [email or web address] Spontaneous unlabored Yes 12/28/23 10:09 [email or web address] respirations Mental status Asleep 12/28/23 10:09 [email or web address] nausea No 12/28/23 10:09 [email or web address] Vomiting No 12/28/23 10:09 [email or web address] Anesthesia Postop Eval I: Fluid Summary Crystalloid volume administer 60 12/28/23 10:09 [email or web address] (ml) Colloids volume administered ( ml) Blood Product volume administered (ml) Total IV fluid infused 60 12/28/23 10:09 [email or web address] Anesthesia Postop Eval I: Summary Notes Anesthesia Complication No 12/28/23 10:09 [email or web address] Anesthesia Complication Comment: Post-operative progress note Anesthesia: Postop Eval II Evaluation Mental status: Awake Pain Level: 0 nausea: No Vomiting: No
== END 2023-12-28 11:27 | disposition home or self-care (01) ==
LOC: EN 07:52 → AC 07:53
PROVIDERS: Anesthesiology; PCP Family Medicine; Referring Provider Family Medicine; Visit Provider Surgery
PROC: 0DJD8ZZ Inspection of Lower Intestinal Tract, Via Natural or Artificial Opening Endoscopic (ICD-10-PCS; CPT 45378; principal; 2023-12-28 08:55)
DX: Z12.11 Encounter for screening for malignant neoplasm of colon (principal); Z80.0 Family history of malignant neoplasm of digestive organs; F32.A Depression, unspecified; Z79.899 Other long term (current) drug therapy; Z15.09 Genetic susceptibility to other malignant neoplasm
CPT/HCPCS: 45378; 81025; A4216; J2405

== ENCOUNTER 2024-02-01 05:48 | Day surgery (SDC) | payer OTHER, SELFPAY ==
--- NOTE | 2024-01-31 17:36 | HP.PCM_ITS ---
History and Physical Vital Signs 12/28/2407:10 01/06/2415:08 01/21/2416:00 Height 5 ft 10 in 5 ft 10 in 5 ft 10 in Weight: 143 lb 8 oz BMI 20.5 BP 106/74 Intake Visit Reasons: [facility] cystectomy Car Seat Maker Required: No Is patient in pain?: Yes (constant pelvic pain) Pain scale (1-10): 7 Feel stressed/tense/nervous/anxious/difficulty sleeping: only a little (takes medication) Allergies No Known Allergies Allergy (Verified 01/21/24 16:04) Medications ?Medication ?Instructions ?Recorded ?Confirmed ?Type vits,calcium no.78-iron 1 tab PO DAILY 11/16/17 01/21/24 History fumarate-folic acid 29 mg-1 mg tablet (Prenatabs FA) ergocalciferol (vitamin D2) 1,000 2,000 unit PO DAILY 12/05/20 01/21/24 History unit capsule escitalopram oxalate 20 mg tablet 20 mg PO DAILY see provider 12/05/20 01/21/24 History (Lexapro) hydroxyzine HCl 25 mg tablet 25 mg PO QHS 12/13/23 01/21/24 History pyridoxine (vitamin B6) 10 mg 10 mg PO QDAY 12/13/23 01/21/24 History tablet Is last menstrual period known: Yes Last Menstrual Period: 12/07/23 Post menopausal: No Patient : No : No PFSH Medical History Wears contact lenses Wears glasses Bipolar disorder Low iron Normal esophagogastroduodenoscopy (EGD) Vaginal delivery Ny syndrome HPV (human papilloma virus) infection Asthma Anxiety Depression Surgical History H/O colonoscopy History of surgery Family History Grandmother COPD (chronic obstructive pulmonary disease)Father Colon cancer, Onset Age: 35 at 38 Social History adopted: No household members: spouse and children housing: house number of children: 3 current occupational status: employed current occupation: [employer] current occupational exposures/hazards: Yes Smoking Status: Current every day smoker tobacco type: e-cigarettes alcohol intake: never substance use type: does not use seatbelt use: always do you feel safe at home: Yes 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 no medication or surgery needed. she has a history of ny syndrome. she has regular menses, q28 days lasting 4 days, heavy and painful. her and her are done having kids, she is wanting to proceed with prophylactic hysterecotmy now. she has a 3 cm simple cyst on her left ovary. she had all vaginal deliveries. she has some bloating diarrhea and constipation. she had a normal colonoscopy. Female Reproductive History Last Menstrual Period: 12/07/23 Menopausal Symptoms: Yes hot flashes, Yes night sweats, No weight change and No mood changes History 5 Elective abortions Hx Para 3 Spontaneous abortions 2 Hx # Term Pregnancies Ectopic pregnancies Hx # Pregnancies Multiple births # of living children 3 Past Pregnancies Del. Date Name GA/Weeks Outcome Route Bth Weight Gen Labor Lgth Anesthesia Del Locatn Provider FOB Unknown 2012 [place] [facility] Unknown 2017 [place] Unknown 2020 [facility] Const Constitutional: Reports night sweats; Denies weight gain or weight loss ENT ENT: Reports system reviewed and no additional complaints, except as documented Cardio Card: Denies chest pain Resp Resp: Denies cough or dyspnea GI GI: Reports as per HPI, abdominal pain and constipation; Denies nausea or vomiting : Reports hot flashes; Denies nipple discharge, urinary frequency, urinary incontinence, urinary hesitancy, urinary urgency, vaginal discharge, vaginal dryness, vaginal odor or vaginal pruritus Musc Musc: Denies arthralgias, back pain or muscle weakness Skin Skin/Breast: Denies alopecia, change in hair, dry skin, breast mass, breast pain, breast skin changes or nipple discharge Neuro Neuro: Reports system reviewed and no additional complaints, except as documented Psych Psych: Reports system reviewed and no additional complaints, except as documented Endo Endo: Denies cold intolerance, excessive sweating, heat intolerance or polydipsia Kunal/Lymph Hematologic/Lymphatic: Denies easy bleeding, Denies easy bruising and Denies lymphadenopathy Exam Const General: cooperative, healthy appearing, comfortable, no acute distress and well developed Orientation: alert [facility] Head: normal to inspection and normocephalic Ears: hearing grossly normal bilaterally and external ears normal Nose: external nose normal and nares normal Face and sinus: normal facial exam Neck Neck: normal visual inspection and no lymphadenopathy Thyroid: thyroid normal Chest Chest palpation & inspection: normal inspection of the chest Resp Effort & Inspection: normal respiratory effort Auscultation: clear to auscultation bilaterally Cardio Rate: regular rate Rhythm: regular rhythm Heart Sounds: S1 normal and S2 normal GI Inspection: normal to inspection and non-distended Palpation: soft and no hepatosplenomegaly General: bladder normal to palpation External Female Exam: normal external appearance and normal appearance of the urethra Urethra: normal appearance of the urethra, normal palpation and no discharge Speculum Exam - Vagina: normal appearance of the vagina and normal vaginal discharge Speculum Exam - Cervix: normal appearance of the cervix and nontender Bimanual Exam- Vagina & Uterus: normal bimanual exam, uterine size normal, bladder normal to palpation, uterine shape normal, No tender, uterine mobility normal, consistency normal, normal palpation and non-tender Bimanual Exam- Adnexa, other: normal adnexae, adnexae mobile, no masses and normal Pelvic Support: normal Musc Other: gross motor intact no deficits, full bilateral strength Skin General: no rashes or lesions noted Neuro General: patient alert, patient awake, moves all extremities and no focal motor deficits Motor: muscle tone normal throughout Extrem General: normal to inspection and no pedal edema Psych Appearance: grossly normal Mental Status: mental status grossly normal Affect: normal affect Speech and Movement: speech and movement normal Coding Level of Care Code No Charge Diagnoses Ny syndrome Z15.09 Abnormal uterine bleeding N93.9 Chronic pelvic pain in female R10.2; G89.29 Ovarian cyst N83.209 Assessment and Plan Assessment and Plan (1) Ny syndrome: Status: Acute (2) Abnormal uterine bleeding: Status: Acute Comment: nl EMB and pap Plan: After discussing the patient's diagnosis and treatment plan options, patient wishes to proceed with surgical management. I have discussed with the patient the risks, benefits, and alternatives of the procedure which include but are not limited to risks of anesthesia, bleeding, infection, possible damage to bowel, bladder, or surrounding vasculature which could lead to additional surgery to evaluate any complications. Patient agrees to procedure and wishes to proceed. ACOG/uptodate references given for additional information regarding procedure. counseling regarding ny syndrome diagnosis. recommend hyst and oophorectomy. (3) Chronic pelvic pain in female: Status: Chronic Comment: plan LAVH LSO (4) Ovarian cyst: Status: Acute Comment: ca125 ordered, repeat pelvic US, 3 cm simple cyst, plan oophorectomy due to ny syndrome. Plan After discussing the patient's diagnosis and treatment plan options, patient wishes to proceed with surgical management. I have discussed with the patient the risks, benefits, and alternatives of the procedure which include but are not limited to risks of anesthesia, bleeding, infection, possible damage to bowel, bladder, or surrounding vasculature which could lead to additional surgery to evaluate any complications. Patient agrees to procedure and wishes to proceed. ACOG/uptodate references given for additional information regarding procedure.
[2024-02-01] VITALS (14 sets, daily range): BP systolic 112–145; BP diastolic 67–90; PULSE 59–80; RESP 16–18; TEMP 36.1–36.9; O2SAT 89–100; BMI 20.5
[2024-02-01] MEDS: Lactated Ringers 1,000 ML 40 ML IV (06:25)
[2024-02-01 06:29] LABS: Internal QC Validated? YES +Cl - CLEAR BKGD; Pregnancy, Urine Negative Negative
[2024-02-01 06:55] LABS: Magnesium 2.3 mg/dL (1.6-2.6)
[2024-02-01] MEDS: Scopolamine 1mg/72hr Patch 1 PATCH TD (07:00)
[2024-02-01] MEDS: Gabapentin 600 MG Tablet PO (07:01)
[2024-02-01] MEDS: Enoxaparin 40 MG/0.4 ML Syringe SC (07:01)
[2024-02-01] MEDS: Celecoxib 200 MG Capsule 400 MG PO (07:01)
[2024-02-01] MEDS: Acetaminophen 500 MG Tablet 1000 MG PO ×2 (07:01→12:33)
[2024-02-01] MEDS: Phenazopyridine 95 MG Tablet 190 MG PO (07:01)
--- NOTE | 2024-02-01 07:35 | PRE.ANES_ITS ---
ASA Classification* ASA Classification ASA Classification: 2 Assessment & Plan Anesthesia* Anesthesia Assessment Anesthesia Assessment: Discussed sedation and/or anesthesia options, risks, benefits, and alternatives with patient/parents/legal guardian/POA. Questions invited. The patient/parents/legal guardian/POA seems to understand and agrees to proceed with anesthesia plan. Reviewed the physical assessment, medical history, allergy history and patient home medications list prior to surgery/procedure/anesthetic and documented any changes. Performed airway and anesthesia risk assessments. Anesthesia Type Anesthesia Type: General Anesthesia Focused Assessment* Temperature: 98.0 F Pulse Rate: 70 Blood Pressure: 112/74 Respiratory Rate: 18 Pulse Ox: 100 Airway Assessment Mouth opens: >3 cm Mallampati Score: II Focused Labs Anesthesia Preop lab: CBC WBC 7.6 K/mm3 (4.4-11.0) 12/21/23 14:25 RBC 4.14 M/mm3 (4.2-5.4) L 12/21/23 14:25 Hgb 12.2 g/dL (12.0-15.0) 12/21/23 14:25 Hct 37.3 % (37-47) 12/21/23 14:25 Plt Count 202 K/mm3 (150-450) 12/21/23 14:25 CHEMISTRY Potassium 3.3 mmol/L (3.5-5.1) L 10/22/23 16:08 Sodium 139 mmol/L (136-145) 10/22/23 16:08 Magnesium 2.3 mg/dL (1.6-2.6) 02/01/24 06:35 BUN 6 mg/dL (7-18) L 10/22/23 16:08 Creatinine 0.74 mg/dL (0.55-1.02) 10/22/23 16:08 Glucose 92 mg/dL (74-106) 10/22/23 16:08 TSH 1.230 uIU/mL (0.358-3.740) 12/21/23 14:25 COAG HCG, Quant < 1 mIU/mL (1-3) 10/22/23 16:08 Urine Test Negative Negative 02/01/24 06:15 Tst Clinic Negative 12/13/23 12:34 Pre-Assessment Diagnosis/Proposed Procedure Planned Operative Procedure(s): LAVH BSO LEFT OVARIAN CYSTECTOMY Anesthesia History 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 When Was Last Pacemaker Check QUESTION #4 FULL TEXT: You/Your Family Experience fever (hyperthermia) with Anesthesia Last Oral Intake Last Oral intake: Last Oral Intake NPO since 04:45 02/01/24 06:20 Meds taken in AM with sips of Yes 02/01/24 06:20 water? Meds patient instructed to LEXAPRO 02/01/24 06:20 take am of surgery PONV PONV - swine genetics researcher: PONV - swine genetics researcher Female Yes 01/25/24 12:05 HX of Motion Sickness Yes 01/25/24 12:05 HX of N/V After Surgery No 01/25/24 12:05 Non-Smoker No 01/25/24 12:05 Duration of Surgery greater Yes 01/25/24 12:05 than 60 minutes Number of Risk Factors 3 01/25/24 12:05 PONV Score Moderate Risk 01/25/24 12:05 Height & Weight Height & Weight: Anesthesia: Height & Weight Height 5 ft 10 in 02/01/24 06:20 Weight: 65 kg 02/01/24 06:20 Body Mass Index (BMI) 20.5 02/01/24 06:20 Respiratory Assessment Respiratory Assessment - swine genetics researcher: Respiratory Tract Infection Hx - swine genetics researcher Hx Respiratory Tract Infection No 01/25/24 12:05 STOP Sleep Apnea STOP Sleep Apnea - swine genetics researcher: STOP Sleep Apnea - swine genetics researcher Hx Hypertension No 01/25/24 12:05 Hx Sleep Apnea No 01/25/24 12:05 CPAP BIPAP Do you snore loudly (louder No 01/25/24 12:05 than talking or can be heard Do you often feel tired/ Yes 01/25/24 12:05 fatigued/ sleepy during daytime? Has anyone observed you stop No 01/25/24 12:05 breathing during sleep? STOP Results Negative 01/25/24 12:05 QUESTION #5 FULL TEXT : Do you snore loudly (louder than talking or can be heard through closed doors)? Tobacco Use History Tobacco Use History - swine genetics researcher: Tobacco Use History - swine genetics researcher Tobacco Use Vapor 01/07/24 15:08 Smoking Status Current every day smoker 01/25/24 12:05 Hx Tobacco Use Yes 01/25/24 12:05 Years Smoking Packs Smoked per Day Smoking Cessation Date was within the last 15 years Hx Smoking Cessation Date Hx Smoking Cessation Counseling Hematologic Medial History Hematologic Hx - swine genetics researcher: Hematologic Medical Hx - tonguer Hx of Blood Transfusion No 01/25/24 12:05 Hx of Transfusion in last 3 No 01/25/24 12:05 Months Date of Last Transfusion (if within last 3 months) Ever experience any problems No 01/25/24 12:05 with transfusion(s)? Specify any problems Hx of Preganancy in last 3 Yes 01/25/24 12:05 Months Nurse Filling Out Transfusion DSCHRIBER 01/25/24 12:05 & Questions: Date: 01/25/24 01/25/24 12:05 Time: 12:07 01/25/24 12:05 Patient unable to answer at this time (ie. confused, unrespo /Reproduction History /Reproductive History - swine genetics researcher: /Reproductive Hx- swine genetics researcher Hx Now No 01/25/24 12:05 Gestational Age (in weeks): EDC: Hx Hx Para Hx Section SAB No 01/25/24 12:05 Active Medications Active Medications: Current Medications Generic Name Dose Route Start Last Admin Trade Name Freq PRN Reason Stop Dose Admin Acetaminophen 1,000 mg 02/01/24 08:00 02/01/24 07:01 Acetaminophen 500 Mg Tablet PO 02/01/24 08:01 1,000 mg PREOP ONE Administration Celecoxib 400 mg 02/01/24 08:00 02/01/24 07:01 Celecoxib 200 Mg Capsule PO 02/01/24 08:01 400 mg X1 ONE Administration Dexamethasone Sodium Phosphate 8 mg 02/01/24 08:00 Dexamethasone 4 Mg/Ml Vial IV 02/01/24 08:01 X1 ONE Enoxaparin Sodium 40 mg 12/03/24 08:00 02/01/24 07:01 Enoxaparin 40 Mg/0.4 Ml Syringe SC 02/01/24 08:01 40 mg X1 ONE Administration Gabapentin 600 mg 02/01/24 08:00 02/01/24 07:01 Gabapentin 600 Mg Tablet PO 02/01/24 08:01 600 mg PREOP ONE Administration Lactated Ringer's 1,000 mls @ 40 mls/hr 02/01/24 08:00 02/01/24 06:25 IV 40 mls/hr .Q25H XIOMY Administration Cefazolin Sodium 2 gm/ N/A 20 mls @ 400 mls/hr 02/01/24 08:00 IV 02/01/24 08:02 PREOP ONE Magnesium Sulfate 1 gm/ 102 mls @ 408 mls/hr 02/01/24 07:35 Dextrose IV 02/01/24 07:49 X1 ONE Insulin Human Lispro 0 unit 02/01/24 08:00 Insulin Lispro 100 Unit/Ml Insuln.Pen SC 02/01/24 18:00 Q4H PRN PRN BG >/= 180, SEE PROTOCOL Protocol Ondansetron HCl 4 mg 02/01/24 08:00 Ondansetron 4 Mg/2 Ml Vial IV 02/01/24 08:01 X1 ONE Phenazopyridine HCl 190 mg 02/01/24 08:00 02/01/24 07:01 Phenazopyridine 95 Mg Tablet PO 02/01/24 08:01 190 mg X1 ONE Administration Scopolamine HBr 1 patch 02/01/24 08:00 02/01/24 07:00 Scopolamine 1mg/72hr Patch TD 02/01/24 08:01 1 mg X1 ONE Administration PFSH Medical History Restless legs Back pain History of ulceration Smoker Wears contact lenses Wears glasses Bipolar disorder Low iron Normal esophagogastroduodenoscopy (EGD) Vaginal delivery Ny syndrome HPV (human papilloma virus) infection Asthma Anxiety Depression Home Medications ?Medication ?Instructions ?Recorded ?Last Taken ?Type vits,calcium no.78-iron 1 tab PO DAILY 11/16/17 12/04/20 22:00 History fumarate-folic acid 29 mg-1 mg tablet (Prenatabs FA) ergocalciferol (vitamin D2) 1,000 2,000 unit PO DAILY 12/05/20 12/04/20 22:00 History unit capsule escitalopram oxalate 20 mg tablet 20 mg PO DAILY see provider 12/05/20 02/01/24 04:45 History (Lexapro) hydroxyzine HCl 25 mg tablet 25 mg PO QHS 12/13/23 Unknown History pyridoxine (vitamin B6) 10 mg 10 mg PO QDAY 12/13/23 Unknown History tablet albuterol sulfate 90 mcg/actuation 1 inh inhalation Q6H PRN PRN 01/25/24 Unknown History breath activated powder inhaler shortness of breath or wheezing Allergy/AdvReac Type Severity Reaction Status Date / Time No Known Allergies Allergy Verified 02/01/24 06:50 Family History Grandmother COPD (chronic obstructive pulmonary disease) Father Colon cancer, Onset Age: 34 at 38 Surgical History H/O colonoscopy History of surgery Social History adopted: No household members: spouse and children housing: house number of children: 3 current occupational status: employed current occupation: [employer] current occupational exposures/hazards: Yes Smoking Status: Current every day smoker tobacco type: e-cigarettes alcohol intake: never substance use type: does not use seatbelt use: always do you feel safe at home: Yes 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
[2024-02-01] MEDS: Vasopressin 20 UNITS/ML Vial (07:44)
[2024-02-01] MEDS: Bupivacaine 0.25% 30 ML Vial (07:44)
[2024-02-01] MEDS: Magnesium 1 GM over 15 mins IV (07:46)
--- NOTE | 2024-02-01 08:00 | HYST_PTH ---
PATIENT: MEAGAN AVILA [place] [facility] [id number] AGE/SX: 33/F ROOM: RE02/01/[address]: Dr. Bonita Barboza MD : 1990 BED: DIS: 02/01/2024 SPEC #: [id number] RECD: 02/01/24 10:43 STATUS: JIN RERomero #: [id number] GALLO: 02/01/24 08:[address]: Bonita Barboza DEPT: SURGICAL PATHOLOGY RECD BY: Jaycee Christian ENTERED: 02/01/24 11:15 SP TYPE: HYSTERECT OTHR DR: Dr. Guerrero Quijano MD Tissues: Uterus, NOS Procedures: Surgery Specimen Level V HEADER OPERATION: Hysterectomy, laparoscopic assisted vaginal hysterectomy PRE-OP DIAGNOSIS: Ny syndrome, abnormal uterine bleeding, chronic pelvic pain in female, ovarian cyst TISSUE SUBMITTED: Cervix, uterus, left fallopian tube, left ovary MICROSCOPIC DIAGNOSIS Uterus, hysterectomy: Cervix - Mild chronic inflammation. Endometrium - Transitional endometrium with focal glandular and stromal breakdown. Myometrium - No pathologic change. Left ovary- Hemorrhagic corpus luteal cyst and follicular cysts. Left fallopian tube- Benign paratubal cyst. 02/02/2024 MICROSCOPIC DESCRIPTION Slides are reviewed. GROSS DESCRIPTION Received in fixative is one container labeled with the patient's name and designated uterus. The specimen consists of a uterus with attached cervix and attached left ovary and left fallopian tube. The uterus with cervix measures 8.3 x 6.0 x 4.5 cm and weighs 104 gm. The ectocervix is unremarkable. The cervical os is oval in contour. The endocervical canal measures 3.2 cm in length and is grossly unremarkable. The triangular endometrial cavity measures 3.0 x 3.0 cm. The velvety, reddish-gross endometrium measures up to 0.2 cm in thickness. The myometrium measures 2.0 cm in average thickness and is free of mass lesions. The smooth glistening cystic ovary measures 4.0 x 2.5 x 1.6cm. The external surface is smooth and glistening. No mass lesions are identified. Serial sections reveal multiple cysts ranging in size from 0.5 to 1.5cm and containing clear to bloody fluid. No tubovarian adhesions are identified. The fallopian tube measures 7.0cm in length and 0.6cm in average diameter. The fimbrial end contains a smooth glistening cyst measuring 1.0cm and containing clear fluid. Medical Services Coordinator sections are submitted as follows: 1 - anterior cervix, 2 - posterior cervix, 3 & 4 - anterior uterine wall, 5 & 6 - posterior uterine wall, 7&8 - ovary, 9 - fallopian tube and paratubal cyst. / AM: 02/01/2024 TC:5 CPT: 91610
--- NOTE | 2024-02-01 08:02 | OP.PCM_ITS ---
Problems Associated Problem List Diagnoses (1) Ovarian cyst: (2) Chronic pelvic pain in female: (3) Abnormal uterine bleeding: (4) Anxiety: (5) Asthma: (6) Depression: (7) Ny syndrome: Operative Report (Standard) Operative Information Surgery/Procedure Performed: laparoscopic assisted vaginal hysterectomy left salpingo-oophorectomy Surgeon: Bonita Barboza Date of Procedure: 02/01/24 Procedure Start Time: 08:32 Procedure Stop Time: 10:19 Pre-Operative Diagnosis: see problem comments Post-Operative Diagnosis: same Select all DRAINS/GRAFTS/IMPLANTS that apply: Drains Drain details: phelps removed after procedure Type of Anesthesia: General Estimated Blood Loss: 300 Specimen collected: Yes Description of specimen(s) removed: uterus, left tube and ovary Description of surgery: Patient received preoperative antibiotics and SCDs were on preoperatively. Patient was taken back to the operating room and placed in the dorsal lithotomy position. General anesthesia was induced and patient was prepped and draped in normal sterile fashion. Uterine manipulator was placed inside the uterus and Phelps catheter placed in the bladder. The umbilicus was grasped with towel clamps and an intraumbilical incision was made after injecting with quarter percent Marcaine and a Veress needle entered into the abdomen confirmed to be intra-abdominal with a low opening pressure. Abdomen was insufflated with CO2 gas and the Veress needle removed and the 5 mm trocar was placed under direct visualization without complication. Right and left lower quadrants were transilluminated and injected with quarter percent Marcaine and 5 mm ports placed under direct visualization. Pelvis was well visualized see operative findings for additional information. left fallopian tube and ovary was ident ified and the IP ligament was transected with the LigaSure device to the level of the the uterus and the broad ligament was opened up by transecting the round ligament bilaterally and skeletonizing the uterine vessels bilaterally and creating a bladder flap using the LigaSure device. The uterine arteries were transected bilaterally with good visualization of the bladder and the ureters were seen to be inferior lateral to the operative area. Attention was then paid to the vaginal portion of the procedure and the cervix was grasped with Ron clamps and circumferentially injected with dilute vasopressin. A circumferential incision was made and the vaginal mucosa was mobilized off posteriorly and the cul-de-sac entered into sharply and a longneck speculum placed. The anterior cul-de-sac was then identified and entered into sharply. The uterosacral ligaments were clamped cut and suture ligated with 0 Monocryl bilaterally followed by the cardinal ligaments which were clamped cut and suture ligated bilaterally with 0 Monocryl. The uterus serially descended and was removed without difficulty with minimal morcellation. Pelvic sidewall pedicles were checked and noted to have excellent hemostasis. The vaginal mucosa was reapproximated incorporating the posterior peritoneum. This was reapproximated using 0 Vicryl [id number] sutures. Excellent hemostasis was noted. The pelvis and cul-de-sac was well visualized and no significant active bleeding noted but some raw areas were seen on the peritoneum and therefore floseal was applied. Pressure was taken down and the areas visualized and noted of excellent hemostasis. All ports were removed under direct visualization without complication and the abdomen was desufflated of air. The instruments removed from the abdomen and the vagina vaginal sweep was negative. Port sites on the abdomen were closed with 4-0 Monocryl interrupted sutures and Steri's and windows were applied. She was awoken and taken recovery in stable condition. 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 Picture Hanger: Jah Gerard Tasks completed by first press operator: Opening & closing, Dissecting tissue (on their side), Removing tissue (dissecting along the lower part of the mesosalpinx removing the fallopian tub on their surgical side under direct supervision of the surgeon), Insert Trochanter (under direct supervision and direction of placement by surgeon) and Retracting Additional email marketing assistant?: No Complications Complications: No Admit VTE Documentation VTE Present on Admission: No VTE Mechan Device Prophylaxis: SCD's Procedures Urinary/Genital [id number]: 36668 LAVH+BS/O <250gr Uterus
--- NOTE | 2024-02-01 08:15 | DCINST_ITS ---
Discharge Instructions Diet Discharge Diet: No restrictions DC O2, CPAP, BIPAP needs Additional Home O2 Discharge instructions: No Dressing / Incision May resume sexual activity in: 6 weeks Weight Bearing Status: Full weight bearing Dressing / Incision Call your doctor if your incision/area has: Continuous Slow Oozing, Sudden Increased Bleeding, Increased Pain/ Swelling, Increased Redness and Foul Smelling Discharge Call your doctor if you observe: Fever of 101 or Higher, Using more than 1 pad per hour, Shortness of breath, Chest pain and Uncontrolled pain Suture Line Care: Avoid Pulling/Pushing and Avoid Pinching/Bending Remove Dressing in: 1 week (if present) Cleanse incision/area with: Soap & Water and Keep Dressing Clean & Dry Follow Up Care Please Follow Up With: Bonita Barboza MD When: Call to make an appointment with your doctor for a postop visit in 2 and 6 weeks. Test Results: Test results from this visit will be discussed in further detail at your follow- up appointment, if applicable. Discharge Plan Admission Attending Provider: Bonita Barboza Primary Care Provider: Guerrero Quijano Instructions Print Language: Cook Islander Discharge Orders/Prescriptions Prescriptions: New oxycodone-acetaminophen [Percocet] 5-325 mg tablet 1 tab PO Q6H PRN (Reason: pain) 7 Days Qty: 20 0RF naproxen 500 mg tablet 500 mg PO BID PRN PRN (Reason: Pain) Qty: 30 1RF No Action hydroxyzine HCl 25 mg tablet 25 mg PO QHS pyridoxine (vitamin B6) 10 mg tablet 10 mg PO QDAY Prenatabs FA 1 TABLET tablet 1 tab PO DAILY MDD one ergocalciferol (vitamin D2) 1,000 unit Capsule 2,000 unit PO DAILY escitalopram oxalate [Lexapro] 20 mg Tablet 20 mg PO DAILY albuterol sulfate 90 mcg/actuation aerosol powdr breath activated 1 inh inhalation Q6H PRN PRN (Reason: shortness of breath or wheezing) Referrals / Follow Up: Guerrero Quijano MD [Primary Care Provider] - Disposition Disposition (needs filled in before D/C Order can be placed): Home, Self Care
[2024-02-01] MEDS: Cefazolin 2 GM in Syringe IV (08:16)
[2024-02-01] MEDS: dexAMETHasone 4 MG/ML Vial 8 MG IV (08:34)
--- NOTE | 2024-02-01 10:25 | PCM.POST.ANE ---
Anesthesia: Postop Eval I Current Vital Signs Temperature: 97 F Pulse Rate: 75 Blood Pressure: 115/71 Respiratory Rate: 16 Pulse Ox: 92 Oxygen Delivery Method: Room Air Assessment Airway patent: Yes Spontaneous unlabored respirations: Yes Mental status: Awake nausea: No Vomiting: No Anesthesia Complication: No Fluid Hydration Crystalloid volume administer (ml): 1,800 Total IV fluid infused: 1,800 Progress Note Anesthesia document: Postop Eval 1 completed: Yes
[2024-02-01] MEDS: Ketorolac 30 MG/ML Syringe IV (11:40)
[2024-02-01] MEDS: oxyCODONE 5 MG Tablet PO (12:33)
[2024-02-01 12:46] LABS: Hematocrit 35.1 % (37-47); Hemoglobin 11.7 g/dL (12.0-15.0); Mean Corp Hgb Conc 33.3 g/dL (32-36); Mean Corpuscular Hgb 29.3 pg (27.0-32.0); Mean Platelet Vol. 10.4 fl (6.2-12.0); Platelet Count 222 K/mm3 (150-450); RBC Distribution Width SD 42.5 fl (35.1-43.9); Red Blood Count 3.99 M/mm3 (4.2-5.4); White Blood Count 15.5 K/mm3 (4.4-11.0)
--- NOTE | 2024-02-01 13:59 | SUR.PHASEII ---
pain from a 7/10 to a 4/10 after oral med
--- NOTE | 2024-02-01 16:40 | POSTOPAN2_ITS ---
Anesthesia Postop Eval I Sum Postop Eval Completion status Anesthesia document: Postop Eval 1 completed: Yes Anesthesia Postop Eval I Summary Anesthesia Postop Eval I Summary: Anesthesia Postop Eval I: Assessment Summary Airway patent Yes 02/01/24 10:26 CLINICAL TRIAL ASSISTANT.[email or web address] Spontaneous unlabored Yes 02/01/24 10:26 CLINICAL TRIAL ASSISTANT.JDEF respirations Mental status Awake 02/01/24 10:26 CLINICAL TRIAL ASSISTANT.JDEF nausea No 02/01/24 10:26 CLINICAL TRIAL ASSISTANT.JDEF Vomiting No 02/01/24 10:26 CLINICAL TRIAL ASSISTANT.JDEF Anesthesia Postop Eval I: Fluid Summary Crystalloid volume administer 1,800 02/01/24 10:26 CLINICAL TRIAL ASSISTANT.JDEF (ml) Colloids volume administered ( ml) Blood Product volume administered (ml) Total IV fluid infused 1,800 02/01/24 10:26 CLINICAL TRIAL ASSISTANT.JDEF Anesthesia Postop Eval I: Summary Notes Anesthesia Complication No 02/01/24 10:26 CLINICAL TRIAL ASSISTANT.JDEF Anesthesia Complication Comment: Post-operative progress note Anesthesia: Postop Eval II Evaluation Mental status: Awake and Calm Pain Level: 1 nausea: No Vomiting: No Complications Anesthesia Complication: No
--- NOTE | 2024-02-01 16:40 | PCM.POSTANE2 ---
Anesthesia Postop Eval I Sum Postop Eval Completion status Anesthesia document: Postop Eval 1 completed: Yes Anesthesia Postop Eval I Summary Anesthesia Postop Eval I Summary: Anesthesia Postop Eval I: Assessment Summary Airway patent Yes 02/01/24 10:26 DIRECTOR PROCESS ENGINEERING.[email or web address] Spontaneous unlabored Yes 02/01/24 10:26 DIRECTOR PROCESS ENGINEERING.JDEF respirations Mental status Awake 02/01/24 10:26 DIRECTOR PROCESS ENGINEERING.JDEF nausea No 02/01/24 10:26 DIRECTOR PROCESS ENGINEERING.JDEF Vomiting No 02/01/24 10:26 DIRECTOR PROCESS ENGINEERING.JDEF Anesthesia Postop Eval I: Fluid Summary Crystalloid volume administer 1,800 02/01/24 10:26 DIRECTOR PROCESS ENGINEERING.JDEF (ml) Colloids volume administered ( ml) Blood Product volume administered (ml) Total IV fluid infused 1,800 02/01/24 10:26 DIRECTOR PROCESS ENGINEERING.JDEF Anesthesia Postop Eval I: Summary Notes Anesthesia Complication No 02/01/24 10:26 DIRECTOR PROCESS ENGINEERING.JDEF Anesthesia Complication Comment: Post-operative progress note Anesthesia: Postop Eval II Evaluation Mental status: Awake and Calm Pain Level: 1 nausea: No Vomiting: No Complications Anesthesia Complication: No
== END 2024-02-01 14:23 | disposition home or self-care (01) ==
LOC: SDC 05:48 → AC 05:49
PROVIDERS: Anesthesiology; PCP Family Medicine; Referring Provider Obstetrics & Gynecology; Visit Provider Obstetrics & Gynecology
PROC: 0UT9FZZ Resection of Uterus, Via Natural or Artificial Opening With Percutaneous Endoscopic Assistance (ICD-10-PCS; CPT 58552; principal; 2024-02-01 07:35)
DX: N93.9 Abnormal uterine and vaginal bleeding, unspecified (principal); F31.9 Bipolar disorder, unspecified; J45.909 Unspecified asthma, uncomplicated; N83.292 Other ovarian cyst, left side; F41.9 Anxiety disorder, unspecified; N95.1 Menopausal and female climacteric states; R10.2 Pelvic and perineal pain; G89.29 Other chronic pain; Z15.09 Genetic susceptibility to other malignant neoplasm; F17.200 Nicotine dependence, unspecified, uncomplicated; N83.8 Other noninflammatory disorders of ovary, fallopian tube and broad ligament
CPT/HCPCS: 58552; 00840; 81025; 83735; 85027; 86850; 86900; 86901; 88307; J2405; J3475